=== PATIENT | female | born 1955 | race Caucasian/White ===

== ENCOUNTER 2021-09-17 17:32 | Inpatient (IN) ==
--- NOTE | 2021-09-17 17:57 | ED Triage Note ---
Date of Service September 17, 2021 History of Present Illness This patient was briefly evaluated while in triage. An abbreviated physical exam was performed. This patient is a 65-year-old Female that feels shaky, nauseated, cannot eat. Ongoing past week. Recently discontinued on buspirone and mirtazapine. Currently on lithium and paxil plus ativan at night. Physical Exam GENERAL: Well appearing HEART: RRR LUNGS: CTA Initial orders for labs and / or imaging were placed and patient was placed in the waiting area until a bed is available. Please see further documentation for the full ED course.
[2021-09-17 20:32] LABS: Albumin Globulin Ratio 1.6 (0.9-2); Albumin Level 4.6 gm/dl (3.4-5.0); BUN Creatinine Ratio 21.1 (10-20); Bilirubin,Total 0.5 mg/dl (0.2-1.0); Calcium 9.8 mg/dl (8.5-10.1); Creatinine Clr Calc Pharmacy 54.2 ml/min; Est GFR (African American) 103.6 ml/min; Est GFR (Non-African American) 89.4 ml/min; Globulin 2.9 gm/dl (2.5-4.0); Magnesium 2.3 mg/dl (1.7-2.4); Potassium 4.7 mmol/L (3.5-5.1); Total Protein 7.5 gm/dl (6.0-8.3)
[2021-09-17 20:55] LABS: Basophils # (auto) 0.01 K/uL (0-0.2); Basophils % (auto) 0.1 %; Eosinophils # (auto) 0.02 K/uL (0-0.5); Eosinophils % (auto) 0.2 %; Hematocrit (blood only) 41.2 % (37-47); Immature Granulocytes # (auto) 0.02 K/uL (0.00-0.02); Immature Granulocytes % (auto) 0.2 %; Lymphocytes # (auto) 2.09 K/uL (1.2-3.4); Lymphocytes % (auto) 19.4 %; Mean Corpuscular Hemoglobin 32.3 pg (25-34); Mean Corpuscular Volume 95.2 fL (80-100); Mean Platelet Volume 9.3 fL (7.4-10.4); Monocytes # (auto) 1.16 K/uL (0.11-0.59); Monocytes % (auto) 10.7 %; Neutrophils % (auto) 69.4 %; Platelet Count 431 K/uL (130-400); RDW Coefficient of Variation 12.1 % (11.5-14.5); Red Blood Count 4.33 M/uL (4.2-5.4)
[2021-09-17] MEDS ORDERED: ONDANSETRON INJ 2 MG/ML 2 ML VIAL IV STA (21:29)
[2021-09-17] MEDS ORDERED: SODIUM CHLORIDE 0.9% 1000ML 1,000 ML IV ONE (21:29)
[2021-09-17] MEDS ORDERED: LORazepam 2 MG/1 ML VIAL IV STA (21:29)
[2021-09-17 23:09] LABS: Appearance Urine Cloudy (Clear); Bacteria Urine Automated Negative (Negative); Bilirubin Urine Negative (Negative); Blood Urine Negative (Negative); Color Urine Yellow; Glucose Urine UA Negative (Negative); Ketones Urine 2+ (Negative); Leukocyte Esterase Urine Trace (Negative); Nitrite Urine Negative (Negative); Protein Urine Negative (Negative); RBC Urine Automated 0-4 /hpf (0-4); Specific Gravity Urine 1.012 (1.000-1.030); Urobilinogen Urine Negative (Negative)
[2021-09-17] MEDS ORDERED: MULTI-VITAMIN INFUSION 10 ML, THIAMINE HCL 100 MG, FOLIC ACID 1 MG in SODIUM CHLORIDE 0... IV ONE (23:47)
[2021-09-17] MEDS ORDERED: GABAPENTIN 800 MG TAB PO STA (23:47)
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
[2021-09-18] MEDS ORDERED: PROMETHAZINE HCL 6.25 MG in SODIUM CHLORIDE 0.9% 50 ML IV STA (00:06)
[2021-09-18] MEDS ORDERED: Ativan IV Alcohol Withdrawal--Active Protocol IV PRN (00:59)
[2021-09-18] MEDS ORDERED: ACETAMINOPHEN 325 MG TAB PO PRN (00:59)
[2021-09-18] MEDS ORDERED: LORazepam 2 MG in SYRINGE 1 ML IV PRN (00:59)
[2021-09-18] MEDS ORDERED: LORazepam 1 MG in SYRINGE 0.5 ML IV PRN (00:59)
[2021-09-18] MEDS ORDERED: traZODone HCL 100 MG TAB PO PRN (00:59)
[2021-09-18] MEDS ORDERED: GABAPENTIN 800MG ALCOHOL WITHDRAWAL LOAD PO STA (00:59)
[2021-09-18] MEDS ORDERED: LORazepam 3 MG in SYRINGE 1.5 ML IV PRN (00:59)
[2021-09-18] MEDS ORDERED: PROMETHAZINE HCL 6.25 MG in SODIUM CHLORIDE 0.9% 50 ML IV PRN (00:59)
--- NOTE | 2021-09-18 01:24 | Emergency Department Note ---
History of Present Illness General Chief complaint: Illness Stated complaint: SHAKING, NAUSEA Time Seen by Provider: 09/17/21 21:26 History of Present Illness This 65-year-old presents to the ER complaining of cannot sleep shaky tremulous since changing upper behavior health medicines Location: Generalized Quality: Weak and shaky Severity: Moderate Duration: Past 2 weeks Timing: Started 2 weeks ago Context: Symptoms got worse and patient came in Modifying factors: better with nothing; worse with activity patient states she has been unable to eat secondary to feeling shaky and tremulous. Patient states that just change up her behavioral health medicines. Patient denies chest pain, dyspnea, fevers, flulike illness. Home Medications Medication Instructions Recorded Confirmed Type lamotrigine 25 mg tablet 50 mg PO DAILY 07/13/20 09/17/21 History acetaminophen 500 mg tablet 1,000 mg PO Q6H PRN 11/15/20 09/17/21 History (Tylenol Extra Strength) fluoxetine 20 mg capsule 60 mg PO QAM 09/17/21 09/17/21 History gabapentin 100 mg capsule 100 mg PO HS 09/17/21 09/17/21 History lorazepam 1 mg tablet 1 mg PO BID 09/17/21 09/17/21 History trazodone 300 mg tablet 300 mg PO HS PRN 09/17/21 09/17/21 History Allergies Allergy/AdvReac Type Severity Reaction Status Date / Time Penicillins Allergy Intermediate Rash Verified 09/17/21 21:38 Sulfa (Sulfonamide Allergy Intermediate Vomiting Verified 09/17/21 21:38 Antibiotics) Past Med/Surg History Medical History History of kidney stones Surgical History No pertinent past surgical history Social History Smoking Status: Never smoker Preferred Language: Amharic Feels Safe at Home: Yes Review of Systems A total of 10 systems reviewed and were otherwise negative Physical Exam Vital Signs Vital Signs - 24 hr 09/17/21 17:55 09/17/21 21:04 09/17/21 23:00 Temperature 37.8 C H Temperature Source Temporal Artery Scan Pulse Rate 86 Respiratory Rate 18 Respiratory Effort / Characteristics Non-Labored Spontaneous Respiratory Depth Normal Blood Pressure 163/91 H Blood Pressure [Right Arm] 166/68 H 138/85 Blood Pressure Mean 115 Blood Pressure Mean [Right Arm] 100 102 Blood Pressure Position [Right Arm] Sitting Lying Pulse Oximetry 96 Oxygen Delivery Method Room Air Sepsis Recent Fever Within 48 Hours No Sepsis New/Unexplained Change in Mental Status No Sepsis Action Taken by Nursing No Action Required VITALS: Vitals are noted on the nurse's note and reviewed by myself. Vital signs stable. GENERAL: Pleasant tremulous female, in no acute distress, nondiaphoretic, well- developed well-nourished. SKIN: The skin was without rashes, erythema, edema, or bruising. There is no tenting of the skin. Capillary reflex less than 2 seconds. HEAD: Normocephalic atraumatic. EARS: External auditory canals clear, EYES: Pupils equal round and reactive to light and accommodation. Conjunctivae without injection, sclerae without icterus. Extraocular movements intact. NOSE: Patent, turbinates without inflammation or discharge. MOUTH: Mucous membranes moist. Pharynx without erythema or exudate. Uvula midline. Airway patent. Tongue does not deviate. NECK: Supple without nuchal rigidity. No lymphadenopathy. No thyromegaly. Cervical spine is nontender. No JVD. HEART: Regular rate and rhythm LUNGS: Clear to auscultation bilaterally without wheezes, rales or rhonchi. No retractions or accessory muscle use. ABDOMEN: Positive bowel sounds x 4. Normal tympanic percussion. Soft, nontender, without masses or organomegaly. Chance sign negative. No guarding or rebound tenderness. No CVA tenderness MUSCULOSKELETAL: No muscle atrophy, erythema, or edema noted. NEURO: Patient was alert and oriented to person place and time. Normal sensation to light and sharp touch. No hyperreflexia. No clonus. No focal neurological deficits. Course Administered Medications Multivitamins 10 ml/ Thiamine HCl 100 mg/ Folic Acid 1 mg/Sodium Chloride 1,011.2 mls @ 100 mls/hr IV .Q10H7M ONE Stop: 09/18/21 09:53 Last Admin: 09/18/21 00:36 Dose: 100 mls/hr Documented by: [id number] Discontinued Medications Gabapentin (Gabapentin 800 Mg Tab) 800 mg PO NOW STA Stop: 09/17/21 23:48 Last Admin: 09/18/21 00:36 Dose: 800 mg Documented by: [id number] Sodium Chloride (Nss 1000ml) 1,000 mls @ 999 mls/hr IV .Q1H1M ONE Stop: 09/17/21 22:29 Last Infusion: 09/17/21 22:49 Dose: 0 mls/hr Documented by: [id number] Admin: 09/17/21 21:43 Dose: 999 mls/hr Documented by: [id number] Promethazine HCl 6.25 mg/ (Sodium Chloride) 50.25 mls @ 201 mls/hr IV NOW STA Stop: 09/18/21 00:20 Last Admin: 09/18/21 00:36 Dose: 201 mls/hr Documented by: [id number] Lorazepam (Lorazepam 2 Mg/1 Ml Vial) 1 mg IV NOW STA; Protocol Stop: 09/17/21 21:30 Last Admin: 09/17/21 21:44 Dose: 1 mg Documented by: [id number] Ondansetron HCl (Ondansetron Inj 2 Mg/Ml 2 Ml Vial) 4 mg IV NOW STA Stop: 09/17/21 21:30 Last Admin: 09/17/21 21:43 Dose: 4 mg Documented by: [id number] Medical Decision Making Medical Records Attestation: I reviewed the patient's medical records. Home Medications Current Medication List: was personally reviewed by me Laboratory Data Attestation: I reviewed the patient's lab results. Result diagrams: 09/17/21 19:50 09/17/21 19:50 Lab Results 09/17/21 09/17/21 09/17/21 Range/Units 19:50 19:50 19:50 WBC 10.80 (4.8-10.8) K/uL RBC 4.33 (4.2-5.4) M/uL Hgb 14.0 (12.0-16.0) g/dL Hct 41.2 (37-47) % MCV 95.2 (80-100) fL MCH 32.3 (25-34) pg MCHC 34.0 (32-36) g/dL RDW Std Deviation 42.0 (36.4-46.3) fL RDW Coeff of Laila 12.1 (11.5-14.5) % Plt Count 431 H (130-400) K/uL MPV 9.3 (7.4-10.4) fL Immature Gran % (Auto) 0.2 % Neut % (Auto) 69.4 % Lymph % (Auto) 19.4 % Dickson % (Auto) 10.7 % Eos % (Auto) 0.2 % Baso % (Auto) 0.1 % Neut # (Auto) 7.50 H (1.4-6.5) K/uL Lymph # (Auto) 2.09 (1.2-3.4) K/uL Dickson # (Auto) 1.16 H (0.11-0.59) K/uL Eos # (Auto) 0.02 (0-0.5) K/uL Baso # (Auto) 0.01 (0-0.2) K/uL Immature Gran # (Auto) 0.02 (0.00-0.02) K/uL Sodium 138 (136-145) mmol/L Potassium 4.7 (3.5-5.1) mmol/L Chloride 101 (98-107) mmol/L Carbon Dioxide 30 (21-32) mmol/L Anion Gap 7 (3-11) BUN 15 (6-23) mg/dl Creatinine 0.71 (0.6-1.2) mg/dl Est Cr Clr Drug Dosing 54.2 ml/min Est GFR ( Amer) 103.6 ml/min Est GFR (Non-Af Amer) 89.4 ml/min BUN/Creatinine Ratio 21.1 H (10-20) Glucose 109 H (70-99(Fasting)) mg/dl Lactate (0.4-2.0) mmol/L Calcium 9.8 (8.5-10.1) mg/dl Magnesium 2.3 (1.7-2.4) mg/dl Total Bilirubin 0.5 (0.2-1.0) mg/dl AST 15 (13-39) U/L ALT 9 (7-52) U/L Alkaline Phosphatase 70 (34-104) U/L Total Creatine Kinase (26-192) U/L Total Protein 7.5 (6.0-8.3) gm/dl Albumin 4.6 (3.4-5.0) gm/dl Globulin 2.9 (2.5-4.0) gm/dl Albumin/Globulin Ratio 1.6 (0.9-2) Lipase 24 (11-82) U/L Procalcitonin (0-0.5) ng/ml TSH 1.592 (0.300-4.500) uIu/ml Urine Color Urine Appearance (Clear) Urine pH (4.5-7.5) Ur Specific [place] (1.000-1.030) Urine Protein (Negative) Urine Glucose (UA) (Negative) Urine Ketones (Negative) Urine Blood (Negative) Urine Nitrite (Negative) Urine Bilirubin (Negative) Urine Urobilinogen (Negative) Ur Leukocyte Esterase (Negative) Urine WBC (Auto) (0-5) /hpf Urine RBC (Auto) (0-4) /hpf U Hyaline Cast (Auto) (0-5) /lpf U Epithel Cells (Auto) (0-5) /lpf Urine Bacteria (Auto) (Negative) [place] (0.6-1.2) mmol/L Ethyl Alcohol mg/dL (<10.0) mg/dl SARS-CoV-2, RNA, NAAT (NEGATIVE) 09/17/21 09/17/21 09/17/21 Range/Units 19:50 19:50 19:50 WBC (4.8-10.8) K/uL RBC (4.2-5.4) M/uL Hgb (12.0-16.0) g/dL Hct (37-47) % MCV (80-100) fL MCH (25-34) pg MCHC (32-36) g/dL RDW Std Deviation (36.4-46.3) fL RDW Coeff of Laila (11.5-14.5) % Plt Count (130-400) K/uL MPV (7.4-10.4) fL Immature Gran % (Auto) % Neut % (Auto) % Lymph % (Auto) % Dickson % (Auto) % Eos % (Auto) % Baso % (Auto) % Neut # (Auto) (1.4-6.5) K/uL Lymph # (Auto) (1.2-3.4) K/uL Dickson # (Auto) (0.11-0.59) K/uL Eos # (Auto) (0-0.5) K/uL Baso # (Auto) (0-0.2) K/uL Immature Gran # (Auto) (0.00-0.02) K/uL Sodium (136-145) mmol/L Potassium (3.5-5.1) mmol/L Chloride (98-107) mmol/L Carbon Dioxide (21-32) mmol/L Anion Gap (3-11) BUN (6-23) mg/dl Creatinine (0.6-1.2) mg/dl Est Cr Clr Drug Dosing ml/min Est GFR ( Amer) ml/min Est GFR (Non-Af Amer) ml/min BUN/Creatinine Ratio (10-20) Glucose (70-99(Fasting)) mg/dl Lactate (0.4-2.0) mmol/L Calcium (8.5-10.1) mg/dl Magnesium (1.7-2.4) mg/dl Total Bilirubin (0.2-1.0) mg/dl AST (13-39) U/L ALT (7-52) U/L Alkaline Phosphatase (34-104) U/L Total Creatine Kinase 59 (26-192) U/L Total Protein (6.0-8.3) gm/dl Albumin (3.4-5.0) gm/dl Globulin (2.5-4.0) gm/dl Albumin/Globulin Ratio (0.9-2) Lipase (11-82) U/L Procalcitonin (0-0.5) ng/ml TSH (0.300-4.500) uIu/ml Urine Color Urine Appearance (Clear) Urine pH (4.5-7.5) Ur Specific [place] (1.000-1.030) Urine Protein (Negative) Urine Glucose (UA) (Negative) Urine Ketones (Negative) Urine Blood (Negative) Urine Nitrite (Negative) Urine Bilirubin (Negative) Urine Urobilinogen (Negative) Ur Leukocyte Esterase (Negative) Urine WBC (Auto) (0-5) /hpf Urine RBC (Auto) (0-4) /hpf U Hyaline Cast (Auto) (0-5) /lpf U Epithel Cells (Auto) (0-5) /lpf Urine Bacteria (Auto) (Negative) [place] < 0.1 L (0.6-1.2) mmol/L Ethyl Alcohol mg/dL (<10.0) mg/dl SARS-CoV-2, RNA, NAAT NEGATIVE (NEGATIVE) 09/17/21 09/17/21 09/17/21 Range/Units 19:50 22:52 22:55 WBC (4.8-10.8) K/uL RBC (4.2-5.4) M/uL Hgb (12.0-16.0) g/dL Hct (37-47) % MCV (80-100) fL MCH (25-34) pg MCHC (32-36) g/dL RDW Std Deviation (36.4-46.3) fL RDW Coeff of Laila (11.5-14.5) % Plt Count (130-400) K/uL MPV (7.4-10.4) fL Immature Gran % (Auto) % Neut % (Auto) % Lymph % (Auto) % Dickson % (Auto) % Eos % (Auto) % Baso % (Auto) % Neut # (Auto) (1.4-6.5) K/uL Lymph # (Auto) (1.2-3.4) K/uL Dickson # (Auto) (0.11-0.59) K/uL Eos # (Auto) (0-0.5) K/uL Baso # (Auto) (0-0.2) K/uL Immature Gran # (Auto) (0.00-0.02) K/uL Sodium (136-145) mmol/L Potassium (3.5-5.1) mmol/L Chloride (98-107) mmol/L Carbon Dioxide (21-32) mmol/L Anion Gap (3-11) BUN (6-23) mg/dl Creatinine (0.6-1.2) mg/dl Est Cr Clr Drug Dosing ml/min Est GFR ( Amer) ml/min Est GFR (Non-Af Amer) ml/min BUN/Creatinine Ratio (10-20) Glucose (70-99(Fasting)) mg/dl Lactate 0.9 (0.4-2.0) mmol/L Calcium (8.5-10.1) mg/dl Magnesium (1.7-2.4) mg/dl Total Bilirubin (0.2-1.0) mg/dl AST (13-39) U/L ALT (7-52) U/L Alkaline Phosphatase (34-104) U/L Total Creatine Kinase (26-192) U/L Total Protein (6.0-8.3) gm/dl Albumin (3.4-5.0) gm/dl Globulin (2.5-4.0) gm/dl Albumin/Globulin Ratio (0.9-2) Lipase (11-82) U/L Procalcitonin < 0.05 (0-0.5) ng/ml TSH (0.300-4.500) uIu/ml Urine Color Yellow Urine Appearance Cloudy A (Clear) Urine pH 8.0 H (4.5-7.5) Ur Specific [place] 1.012 (1.000-1.030) Urine Protein Negative (Negative) Urine Glucose (UA) Negative (Negative) Urine Ketones 2+ H (Negative) Urine Blood Negative (Negative) Urine Nitrite Negative (Negative) Urine Bilirubin Negative (Negative) Urine Urobilinogen Negative (Negative) Ur Leukocyte Esterase Trace H (Negative) Urine WBC (Auto) 1-5 (0-5) /hpf Urine RBC (Auto) 0-4 (0-4) /hpf U Hyaline Cast (Auto) 1-5 (0-5) /lpf U Epithel Cells (Auto) 5-10 H (0-5) /lpf Urine Bacteria (Auto) Negative (Negative) [place] (0.6-1.2) mmol/L Ethyl Alcohol mg/dL (<10.0) mg/dl SARS-CoV-2, RNA, NAAT (NEGATIVE) 09/17/21 Range/Units 23:10 WBC (4.8-10.8) K/uL RBC (4.2-5.4) M/uL Hgb (12.0-16.0) g/dL Hct (37-47) % MCV (80-100) fL MCH (25-34) pg MCHC (32-36) g/dL RDW Std Deviation (36.4-46.3) fL RDW Coeff of Laila (11.5-14.5) % Plt Count (130-400) K/uL MPV (7.4-10.4) fL Immature Gran % (Auto) % Neut % (Auto) % Lymph % (Auto) % Dickson % (Auto) % Eos % (Auto) % Baso % (Auto) % Neut # (Auto) (1.4-6.5) K/uL Lymph # (Auto) (1.2-3.4) K/uL Dickson # (Auto) (0.11-0.59) K/uL Eos # (Auto) (0-0.5) K/uL Baso # (Auto) (0-0.2) K/uL Immature Gran # (Auto) (0.00-0.02) K/uL Sodium (136-145) mmol/L Potassium (3.5-5.1) mmol/L Chloride (98-107) mmol/L Carbon Dioxide (21-32) mmol/L Anion Gap (3-11) BUN (6-23) mg/dl Creatinine (0.6-1.2) mg/dl Est Cr Clr Drug Dosing ml/min Est GFR ( Amer) ml/min Est GFR (Non-Af Amer) ml/min BUN/Creatinine Ratio (10-20) Glucose (70-99(Fasting)) mg/dl Lactate (0.4-2.0) mmol/L Calcium (8.5-10.1) mg/dl Magnesium (1.7-2.4) mg/dl Total Bilirubin (0.2-1.0) mg/dl AST (13-39) U/L ALT (7-52) U/L Alkaline Phosphatase (34-104) U/L Total Creatine Kinase (26-192) U/L Total Protein (6.0-8.3) gm/dl Albumin (3.4-5.0) gm/dl Globulin (2.5-4.0) gm/dl Albumin/Globulin Ratio (0.9-2) Lipase (11-82) U/L Procalcitonin (0-0.5) ng/ml TSH (0.300-4.500) uIu/ml Urine Color Urine Appearance (Clear) Urine pH (4.5-7.5) Ur Specific [place] (1.000-1.030) Urine Protein (Negative) Urine Glucose (UA) (Negative) Urine Ketones (Negative) Urine Blood (Negative) Urine Nitrite (Negative) Urine Bilirubin (Negative) Urine Urobilinogen (Negative) Ur Leukocyte Esterase (Negative) Urine WBC (Auto) (0-5) /hpf Urine RBC (Auto) (0-4) /hpf U Hyaline Cast (Auto) (0-5) /lpf U Epithel Cells (Auto) (0-5) /lpf Urine Bacteria (Auto) (Negative) [place] (0.6-1.2) mmol/L Ethyl Alcohol mg/dL < 10.0 (<10.0) mg/dl SARS-CoV-2, RNA, NAAT (NEGATIVE) Imaging Data Attestation: I personally reviewed and interpreted this imaging study as follows: MDM Narrative Prior records/ancillary studies reviewed and summarized above. Nursing notes reviewed. Additional history obtained from family. The patient's history was concerning for shakiness with changes in recent behavioral health meds Differential diagnosis: Etiologies such as serotonin syndrome, metabolic, infection, hypo/hyperglycemia, electrolyte abnormalities, cardiac sources, intracerebral event, toxicologic, neurologic, as well as others were entertained. Physical examination: As above. ER treatment provided: IV Lock An order was placed for continuous cardiac monitoring. The monitor shows a rate of 60-100 with a sinus rhythm. Ativan, Zofran On reassessment the patient felt better. Diagnostics interpretation by me: ECG: Ordered for weakness EKG: Poor baseline, normal sinus, normal intervals, no acute ST-T wave changes. Impression normal sinus rhythm with a poor baseline interpreted by myself I think arrhythmia is unlikely. EKG shows normal sinus rhythm with no interval abnormalities such as QT prolongation or WPW. There are no findings to suggest Brugada syndrome. Cardiac monitoring in the emergency department reveals no tachycardic or bradycardic dysrhythmia. Hypertrophic cardiomyopathy was considered but there are no clear historical elements pointing toward this. EKG is not suggestive. The QRS voltage is not extremely large and there are no suggestive Q waves. The labs revealed no worrisome leukocytosis, euthyroid Imaging studies: Chest x-ray with no acute consolidation, pneumothorax or free air per my interpretation Consultation: A consultation was placed with the hospitalist. The case was discussed and diagnostics were reviewed. The patient was evaluated in the ER for further treatment. Exam and history seem consistent with shakiness could be related to serotonin levels. Medicine is consulted. She will be admitted. No clonus. No hyperreflexia. She is afebrile. By the evaluation outlined above emergent etiologies such as infection, electrolyte abnormalities, cardiac sources, intracerebral event, toxologic, abnormalities blood glucose, metabolic, as well as others were deemed relatively unlikely. The pt informed about the findings as listed above. All questions were answered and pleased with the treatment. The chart was completed utilizing [employer] Speech voice recognition software. Grammatical errors, random word insertions, pronoun errors, and incomplete sentences are an occassional consequence of this system due to software limitations, ambient noise, and hardware issues. Any formal questions or concerns about the content, text, or information contained within the body of this dictation should be directly addressed to the physician payroll human resources assistant for clarification. Impression & Plan Shakiness, Acute dehydration Discharge Plan Visit Data Chief Complaint: Illness Stated Complaint: SHAKING, NAUSEA ED Provider: Robbie Hartman ED Midlevel Provider: Linda Mahan Discharge Problem: Shakiness, Acute dehydration Patient Disposition: Admitted As Inpatient Condition: Good
[2021-09-18] MEDS: THIAMINE HCL 100 MG TAB PO SCH ×2 (02:12→08:08)
[2021-09-18] MEDS: FOLIC ACID 1 MG TAB PO SCH ×2 (02:12→08:08)
[2021-09-18] MEDS: GABAPENTIN 400 MG CAP PO SCH ×2 (06:14→13:08)
[2021-09-18] MEDS: HEPARIN SOD 5,000 UNIT/0.5 ML VIAL SQ SCH ×2 (06:14→13:34)
[2021-09-18 06:48] LABS: Basophils # (auto) 0.02 K/uL (0-0.2); Basophils % (auto) 0.2 %; Eosinophils # (auto) 0.07 K/uL (0-0.5); Eosinophils % (auto) 0.8 %; Hematocrit (blood only) 38.2 % (37-47); Hemoglobin 12.8 g/dL (12.0-16.0); Immature Granulocytes # (auto) 0.01 K/uL (0.00-0.02); Immature Granulocytes % (auto) 0.1 %; Lymphocytes # (auto) 2.09 K/uL (1.2-3.4); Lymphocytes % (auto) 24.1 %; Mean Corpuscular Hemoglobin 31.8 pg (25-34); Mean Corpuscular Hgb Conc 33.5 g/dL (32-36); Mean Platelet Volume 9.1 fL (7.4-10.4); Monocytes % (auto) 10.4 %; Neutrophils # (auto) 5.58 K/uL (1.4-6.5); Neutrophils % (auto) 64.4 %; Platelet Count 354 K/uL (130-400); RDW Coefficient of Variation 12.2 % (11.5-14.5); RDW Standard Deviation 42.1 fL (36.4-46.3); Red Blood Count 4.02 M/uL (4.2-5.4); White Blood Count 8.67 K/uL (4.8-10.8)
--- NOTE | 2021-09-18 07:03 | XRay Report ---
XR chest 1V portable HISTORY: 65 years-old Female fever acute fever COMPARISON: Chest radiograph 08/04/2018 TECHNIQUE: Portable AP view of the chest FINDINGS: The cardiomediastinal and hilar silhouettes are within normal limits. There is no pneumothorax, pleur al effusion, airspace consolidation or overt pulmonary edema. The bones of the chest appear grossly i ntact. Postoperative changes of the right proximal humerus. Degenerative changes of the shoulders and spine. IMPRESSION: No acute process. ACT 112: Negative or not required by law. The above report was generated using voice recognition software. It may contain grammatical, syntax o r spelling errors. Electronically signed by: Jesús Kevin M.D. 09/18/2021 7:02 AM
[2021-09-18 07:30] LABS: Albumin Globulin Ratio 1.7 (0.9-2); Albumin Level 3.8 gm/dl (3.4-5.0); BUN Creatinine Ratio 15.5 (10-20); Bilirubin,Total 0.6 mg/dl (0.2-1.0); Calcium 8.4 mg/dl (8.5-10.1); Creatinine Clr Calc Pharmacy 55.1 ml/min; Est GFR (African American) 103.6 ml/min; Est GFR (Non-African American) 89.4 ml/min; Globulin 2.3 gm/dl (2.5-4.0); Potassium 3.6 mmol/L (3.5-5.1); Total Protein 6.1 gm/dl (6.0-8.3)
--- NOTE | 2021-09-18 08:05 | Hospitalist Progress Note ---
Date of Service September 18, 2021 Assessment & Plan Plan: 65 year old female with treatment refractory depression, complicated medication regimen, low suspicion for ETOH abuse who presented to the ED 09/17 with shakiness and nausea. Her OP meds were recently adjusted by pyschiatry 2 weeks back (paxil dose increased, remeron added) following which she did not feel well after which they were further adjusted (remeron, buspar stopped). Drinks 1 glass of wine daily Shakiness- likely medication S/E, polypharmacy, doubt alcohol withdrawal (drinks 1 glass of wine daily, no hard liquor, denies any alcohol issues and denies withdrawal)- improving after medication adjustment. Seen by psych- recommendations noted. She refused neurontin. Major depression- per psych, discontinue prozac, consider lamictal discontinuation if patient agrees. She self discontinued abilify. She has appointment with Dr Fuentes tomorrow. Admission and Anticipated Discharge Date Admission Date: September 17, 2021 Results & Data Results & Data ([facility] [place]) Vital Signs (Past 12 Hours) Vital Signs Temp Pulse Resp BP Pulse Ox 09/18/21 03:00 36.8 C 66 16 141/68 H 98 09/18/21 01:11 36.8 C 74 16 156/59 H 100 09/17/21 23:00 138/85 09/17/21 21:04 166/68 H
[2021-09-18] MEDS ORDERED: FLUoxetine HCL 20 MG CAP PO SCH (09:00)
[2021-09-18] MEDS ORDERED: lamoTRIgine 25 MG TAB PO SCH ×2 (09:00→21:00)
[2021-09-18] MEDS ORDERED: LORazepam 1 MG TAB PO SCH (09:00)
[2021-09-18] MEDS ORDERED: MULTIVITAMIN TAB PO SCH (09:00)
[2021-09-18] MEDS ORDERED: Nursing to Pharmacy Communication SCH (10:45)
--- NOTE | 2021-09-18 12:44 | Psychiatric Consultation ---
Date of Consultation September 18, 2021 Impression / Recommendations Impression 65 yo female with treatment refractory depression, complicated medication regimen, low suspicion for ETOH abuse was admit for IVF and tremor has essentially resolved. Prozac was held this am. (1) Major depression: case discussed with Dr. Mueller. Prozac does not need to be tapered as long half life and likely cause of jitteriness/N, can f/u with outpatient psychiatrist re: options. Lamictal also doesn't need to be tapered as not for seizure and already d/c per outpatient office but she would prefer to continue 50 mg tonight and then to 25 mg hs tomorrow. she is refusing Neurontin, reviewed it's utility in tremor should recur Ativan BID prn per outpatient psychiatrist and she is aware not to combine with ETOH. Dr. Fuentes notified that patient self-discontinued Abilify 5 mg. outpatient appt with Dr. Fuentes tomorrow may need rescheduled if remains hospitalized in am. Psych History Identifying Data 65 yo female from [facility], outpatient of Dr. Fuentes admit overnight for tremor/dehydration, rule out medication reaction or ETOH withdrawal. Consultation is by hospitalist service for co-management. Chief Complaint "It's just been all downhill for the past 2 weeks". History of Present Illness Patient states that she felt tremulous and N with the addition of Remeron 2 weeks ago and notified the office and was directed to discontinue it, Buspar, and Lamictal taper. Her symptoms only got worse and exacerbated her longstanding resistance to eating related to remote hx of anorexia nervosa. She states overall she has been feeling more anxious and depressed since spring. She did lose an uncle last week who had been ill for some time. She maintains that she drinks one drink a day and that she hasn't changed her use of prn Ativan. Per outpatient psychiatrist office/discussion with Dr. Smith she was transferred to his care for a trial of TMS prior to the pandemic following long term of [facility] [place] but a motor threshhold could not be establish ed. She had responded to Buspar augmentation and Viibryd but stopped working. She was only restarted on Prozac (which she keeps referring to as Paxil) last month with dose titration and now worsening tremor and N. Medication list per Ricky: Neurontin 100 mg po qhs, Abilify 5 mg daily (Patient states she has not been taking for some time, doesn't know either), Prozac 60 mg daily (note was scheduled to receive 40 mg from hospitalist service this am but I held dose until seen). Ativan 1 mg BID prn, Deplin, Lamictal "should already be tapered". Both the patient and her psychiatrist's office state that she hasn't been taking trazodone 300 mg for some time. She doesn't feel Neurontin is as helpful for sleep and apparently has been refusing Neurontin loading here per Dr. Mueller (which she indicated she had taken). She picked at her lunch but notes tremor is essentially resolved. Past Psychiatric History Previous Psych History: no formal dx of cognitive do, no suicidal ideation/attempts under Dr. Fuentes's care. Allergies Allergy/AdvReac Type Severity Reaction Status Date / Time Penicillins Allergy Intermediate Rash Verified 09/17/21 21:38 Sulfa (Sulfonamide Allergy Intermediate Vomiting Verified 09/17/21 21:38 Antibiotics) Home Medications Medication Instructions Recorded Confirmed Type lamotrigine 25 mg tablet 50 mg PO DAILY 07/13/20 09/17/21 History acetaminophen 500 mg tablet 1,000 mg PO Q6H PRN 11/15/20 09/17/21 History (Tylenol Extra Strength) fluoxetine 20 mg capsule 60 mg PO QAM 09/17/21 09/17/21 History gabapentin 100 mg capsule 100 mg PO HS 09/17/21 09/17/21 History lorazepam 1 mg tablet 1 mg PO BID 09/17/21 09/17/21 History trazodone 300 mg tablet 300 mg PO HS PRN 09/17/21 09/17/21 History Personal History Highest Grade Completed: High School Graduate Beliefs That Will Affect Care: None Patient History Medical History History of kidney stones Surgical History No pertinent past surgical history Social History Smoking Status: Never smoker Second Hand Exposure: No; Do You Dip or Chew Tobacco: No; Tobacco Cessation Education Requested by Patient: No Hx Alcohol Use: Yes Alcohol type: wine Hx Substance Use: No Preferred Language: Uzbek Communication Ability: Effective Rural Sociologist Required: No Beliefs That Will Affect Care: None Current Living Situation: Spouse Other Information That Helps Us Care for You: No Feels Safe at Home: Yes Safety Concerns: Feels Safe At This Time Assistive Devices: None Physical Exam Psychiatric: Orientation: alert and oriented x 3 Apperance: appropriately dressed and appropriately groomed Eye Contact: good eye contact Motor Behavior: no abnormal motor movements Speech: normal rate/rhythm/volume of speech Affect: + depressed affect Mood: + depressed mood Thought Process: goal directed thought process Thought Content: reality based without delusions Suicidal Thoughts: denies suicidal thoughts Homicidal Thoughts: denies homicidal thoughts Hallucinations: no auditory hallucinations and no visual hallucinations Cognition: attention grossly intact and language grossly intact Estimated Intelligence: consistent with education level Vital Signs (Past 24 Hours): Last Vital Signs Temp 36.9 C 09/18/21 12:01 Pulse 75 09/18/21 12:01 Resp 18 09/18/21 12:01 BP 123/62 09/18/21 12:01 Pulse Ox 97 09/18/21 12:01 Review of Systems All systems reviewed & are unremarkable except as noted in HPI & below Results & Data (PSY) Laboratory Results Microbiology 09/17/21 22:52 Blood Aerobic Blood Culture - Pending 09/17/21 22:52 Blood Anaerobic Blood Culture - Pending 09/17/21 22:52 Blood Aerobic Blood Culture - Pending 09/17/21 22:52 Blood Anaerobic Blood Culture - Pending Labs 09/17/21 09/17/21 09/17/21 19:50 19:50 19:50 WBC 10.80 RBC 4.33 Hgb 14.0 Hct 41.2 MCV 95.2 MCH 32.3 MCHC 34.0 RDW Std Deviation 42.0 RDW Coeff of Laila 12.1 Plt Count 431 H MPV 9.3 Immature Gran % (Auto) 0.2 Neut % (Auto) 69.4 Lymph % (Auto) 19.4 [place] % (Auto) 10.7 Eos % (Auto) 0.2 Baso % (Auto) 0.1 Neut # (Auto) 7.50 H Lymph # (Auto) 2.09 [place] # (Auto) 1.16 H Eos # (Auto) 0.02 Baso # (Auto) 0.01 Immature Gran # (Auto) 0.02 Sodium 138 Potassium 4.7 Chloride 101 Carbon Dioxide 30 Anion Gap 7 BUN 15 Creatinine 0.71 Est Cr Clr Drug Dosing 54.2 Est GFR ( Amer) 103.6 Est GFR (Non-Af Amer) 89.4 BUN/Creatinine Ratio 21.1 H Glucose 109 H Lactate Calcium 9.8 Magnesium 2.3 Total Bilirubin 0.5 AST 15 ALT 9 Alkaline Phosphatase 70 Total Creatine Kinase Total Protein 7.5 Albumin 4.6 Globulin 2.9 Albumin/Globulin Ratio 1.6 Lipase 24 Procalcitonin TSH 1.592 Urine Color Urine Appearance Urine pH Ur Specific [place] Urine Protein Urine Glucose (UA) Urine Ketones Urine Blood Urine Nitrite Urine Bilirubin Urine Urobilinogen Ur Leukocyte Esterase Urine WBC (Auto) Urine RBC (Auto) U Hyaline Cast (Auto) U Epithel Cells (Auto) Urine Bacteria (Auto) [place] Ethyl Alcohol mg/dL SARS-CoV-2, RNA, NAAT 09/17/21 09/17/21 09/17/21 19:50 19:50 19:50 WBC RBC Hgb Hct MCV MCH MCHC RDW Std Deviation RDW Coeff of Laila Plt Count MPV Immature Gran % (Auto) Neut % (Auto) Lymph % (Auto) [place] % (Auto) Eos % (Auto) Baso % (Auto) Neut # (Auto) Lymph # (Auto) [place] # (Auto) Eos # (Auto) Baso # (Auto) Immature Gran # (Auto) Sodium Potassium Chloride Carbon Dioxide Anion Gap BUN Creatinine Est Cr Clr Drug Dosing Est GFR ( Amer) Est GFR (Non-Af Amer) BUN/Creatinine Ratio Glucose Lactate Calcium Magnesium Total Bilirubin AST ALT Alkaline Phosphatase Total Creatine Kinase 59 Total Protein Albumin Globulin Albumin/Globulin Ratio Lipase Procalcitonin TSH Urine Color Urine Appearance Urine pH Ur Specific [place] Urine Protein Urine Glucose (UA) Urine Ketones Urine Blood Urine Nitrite Urine Bilirubin Urine Urobilinogen Ur Leukocyte Esterase Urine WBC (Auto) Urine RBC (Auto) U Hyaline Cast (Auto) U Epithel Cells (Auto) Urine Bacteria (Auto) [place] < 0.1 L Ethyl Alcohol mg/dL SARS-CoV-2, RNA, NAAT NEGATIVE 09/17/21 09/17/21 09/17/21 19:50 22:52 22:55 WBC RBC Hgb Hct MCV MCH MCHC RDW Std Deviation RDW Coeff of Laila Plt Count MPV Immature Gran % (Auto) Neut % (Auto) Lymph % (Auto) [place] % (Auto) Eos % (Auto) Baso % (Auto) Neut # (Auto) Lymph # (Auto) [place] # (Auto) Eos # (Auto) Baso # (Auto) Immature Gran # (Auto) Sodium Potassium Chloride Carbon Dioxide Anion Gap BUN Creatinine Est Cr Clr Drug Dosing Est GFR ( Amer) Est GFR (Non-Af Amer) BUN/Creatinine Ratio Glucose Lactate 0.9 Calcium Magnesium Total Bilirubin AST ALT Alkaline Phosphatase Total Creatine Kinase Total Protein Albumin Globulin Albumin/Globulin Ratio Lipase Procalcitonin < 0.05 TSH Urine Color Yellow Urine Appearance Cloudy A Urine pH 8.0 H Ur Specific [place] 1.012 Urine Protein Negative Urine Glucose (UA) Negative Urine Ketones 2+ H Urine Blood Negative Urine Nitrite Negative Urine Bilirubin Negative Urine Urobilinogen Negative Ur Leukocyte Esterase Trace H Urine WBC (Auto) 1-5 Urine RBC (Auto) 0-4 U Hyaline Cast (Auto) 1-5 U Epithel Cells (Auto) 5-10 H Urine Bacteria (Auto) Negative [place] Ethyl Alcohol mg/dL SARS-CoV-2, RNA, NAAT 09/17/21 09/18/21 09/18/21 23:10 06:23 06:23 WBC 8.67 RBC 4.02 L Hgb 12.8 Hct 38.2 MCV 95.0 MCH 31.8 MCHC 33.5 RDW Std Deviation 42.1 RDW Coeff of Laila 12.2 Plt Count 354 MPV 9.1 Immature Gran % (Auto) 0.1 Neut % (Auto) 64.4 Lymph % (Auto) 24.1 [place] % (Auto) 10.4 Eos % (Auto) 0.8 Baso % (Auto) 0.2 Neut # (Auto) 5.58 Lymph # (Auto) 2.09 [place] # (Auto) 0.90 H Eos # (Auto) 0.07 Baso # (Auto) 0.02 Immature Gran # (Auto) 0.01 Sodium 138 Potassium 3.6 D Chloride 105 Carbon Dioxide 28 Anion Gap 5 BUN 11 Creatinine 0.71 Est Cr Clr Drug Dosing 55.1 Est GFR ( Amer) 103.6 Est GFR (Non-Af Amer) 89.4 BUN/Creatinine Ratio 15.5 Glucose 102 H Lactate Calcium 8.4 L Magnesium Total Bilirubin 0.6 AST 13 ALT 8 Alkaline Phosphatase 57 Total Creatine Kinase Total Protein 6.1 Albumin 3.8 Globulin 2.3 L Albumin/Globulin Ratio 1.7 Lipase Procalcitonin TSH Urine Color Urine Appearance Urine pH Ur Specific [place] Urine Protein Urine Glucose (UA) Urine Ketones Urine Blood Urine Nitrite Urine Bilirubin Urine Urobilinogen Ur Leukocyte Esterase Urine WBC (Auto) Urine RBC (Auto) U Hyaline Cast (Auto) U Epithel Cells (Auto) Urine Bacteria (Auto) [place] Ethyl Alcohol mg/dL < 10.0 SARS-CoV-2, RNA, NAAT Medications Administered Folic [facility] 1 Mg Tab) [facility] Stop: 10/18/21 00:58 Last Admin: 09/18/21 08:08 Dose: Not Given Documented by: [id number] Admin: 09/18/21 02:12 Dose: Not Given Documented by: [id number] Heparin Sodium (Porcine) (Heparin Sod 5,000 Unit/0.5 Ml Vial) 5,000 units SQ Q8 [facility] Stop: 10/18/21 05:59 Last Admin: 09/18/21 06:14 Dose: Not Given Documented by: [id number] Promethazine HCl 6.25 mg/ (Sodium Chloride) 50.25 mls @ 201 mls/hr IV Q6H PRN PRN Reason: Nausea And Vomiting Stop: 10/18/21 00:58 Last Infusion: 09/18/21 08:55 Dose: 0 mls/hr Documented by: [id number] Admin: 09/18/21 07:47 Dose: 201 mls/hr Documented by: [id number] Lorazepam (Lorazepam 1 Mg Tab) 1 mg PO BID [facility] Stop: 10/18/21 08:59 Last Admin: 09/18/21 09:05 Dose: 1 mg Documented by: [id number] Multivitamins ([facility]ivitamin Tab) [facility] Stop: 10/18/21 08:59 Last Admin: 09/18/21 10:42 Dose: Not Given Documented by: [id number] Thiamine HCl (Thiamine Hcl 100 Mg Tab) 100 mg PO QAM [facility] Stop: 10/18/21 00:58 Last Admin: 09/18/21 08:08 Dose: Not Given Documented by: [id number] Admin: 09/18/21 02:12 Dose: Not Given Documented by: [id number] Coding Level of Care Code 80306 [facility] Intl Hosp Care Lvl 2 Diagnoses Major depression F32.9
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
[2021-09-18] MEDS ORDERED: GABAPENTIN 400 MG CAP PO SCH (22:00)
--- NOTE | 2021-09-18 22:20 | Electrocardiogram Report ---
Test Reason : Blood Pressure : / mmHG Vent. Rate : 073 BPM Atrial Rate : 073 BPM P-R Int : 156 ms QRS Dur : 076 ms QT Int : 416 ms P-R-T Axes : 075 068 073 degrees QTc Int : 458 ms Poor data quality, interpretation may be adversely affected Normal sinus rhythm Septal infarct (cited on or before 13-JUL-2020) Abnormal ECG When compared with ECG of 13-JUL-2020 19:07, No significant change was found Confirmed by Mahamed Sam ([id number]) on 09/18/2021 10:19:34 PM Referred By: REFERRED SELF Confirmed By:Mahamed Sam
[2021-09-20] MEDS ORDERED: GABAPENTIN 400 MG CAP PO SCH
[2021-09-21] MEDS ORDERED: GABAPENTIN 400 MG CAP PO SCH (12:00)
--- NOTE | 2021-10-14 08:35 | Coding Query ---
MALNUTRITION To promote full compliance with coding requirements relating to patient care, physician participation is requested in all cases of tapper bit uncertainty. Please assist us with the question(s) below: Please place an X within the parenthesis (x). If other, please document: "Malnutrition" is documented in this record on the H&P. If possible, please check the box that provides a more specific diagnosis: ( ) Mild malnutrition ( ) Moderate malnutrition ( x) Severe malnutrition ( ) Protein malnutrition (kwashiorkor) ( ) Severe protein calorie malnutrition ( ) Protein calorie malnutrition, unspecified ( ) Other (please specify): Thank you Marybeth JOSÉ
== END 2021-09-18 16:28 | disposition home or self-care (01) | DRG 91 ==
LOC: ED 17:32 → 2E 23:56

== ENCOUNTER 2022-10-24 11:27 | Observation (INO) ==
[2022-10-24] MEDS ORDERED: MECLIZINE HCL 25 MG TAB PO STA (12:07)
[2022-10-24] MEDS ORDERED: LORazepam 2 MG/1 ML VIAL IV STA (12:07)
--- NOTE | 2022-10-24 12:07 | Emergency Department Note ---
Impression & Plan Dizziness, Nausea ED Provider Note NAME: ZIYAD DORADO AGE: 66 SEX: F : 1955 ARRIVES VIA: Walk-In INFORMANT: Patient ED PROVIDER(S): Diego Stevens DO CHIEF COMPLAINT: dizzy HPI: Patient is a 66-year-old female who presents to the ER for dizziness. She notes that the symptoms started on Thursday and have been getting significantly worse. She notes it does not change with positions. Is worse with movement of her eyes. Denies any headache or change in vision. No chest pain or shortness of breath. Admits to nausea but no vomiting. She has been unable to eat or drink. No weakness or numbness in the arms or legs. No other exacerbating or remitting factors. PAST MEDICAL HISTORY:See Below PAST SURGICAL HISTORY:See Below FAMILY HISTORY:See Below SOCIAL HISTORY:See Below HOME MEDICATIONS:See Below ALLERGIES:See Below VITALS:See Below PHYSICAL EXAMINATION: GENERAL: Sitting up in bed, alert, well appearing, well nourished, no distress, non-toxic EYE EXAM: normal conjunctiva. PERRL and EOM's intact. OROPHARYNX: no exudate, no erythema, lips, buccal mucosa, and tongue normal and mucous membranes are moist NECK: supple, no nuchal rigidity, no adenopathy, non-tender LUNGS: Clear to auscultation. Normal chest wall mechanics HEART: no murmurs, S1 normal and S2 normal ABDOMEN: abdomen soft, non-tender, normo-active bowel sounds, no masses, no rebound or guarding. BACK: Back is symmetrical on inspection and there is no deformity, no midline tenderness, no CVA tenderness. SKIN: no rashes and no bruising UPPER EXTREMITIES: upper extremities are grossly normal. LOWER EXTREMITIES: No pitting edema. NEURO EXAM: Normal sensorium, cranial nerves II-XII intact, normal speech, no weakness of arms, no weakness of legs. No drift. Finger to nose intact. Gross sensation intact. MEDICAL DECISION MAKING: Patient is a 66-year-old female who presents ER for above-stated complaint. IV was established blood work was obtained. External records reviewed. Labs show no significant leukocytosis or anemia. BMP along with LFTs bilirubin was un remarkable. Troponin was negative. EKG nondiagnostic. CT angios of the head and neck were negative. She initially notes her symptoms did not change with movement but does later of elaborate that her dizziness is slightly worse with movement of her eyes as well as her head. She was given Antivert and Ativan with improvement/resolution of her nausea but she is still very dizzy. She was updated bedside. Discussed case with the hospitalist for further evaluation management treatment. Triage Nursing notes reviewed. Limited review of prior medical records performed Vital Signs: reviewed and remarkable for no significant abnormalities Differential diagnosis: Differential diagnosis includes etiologies such as benign positional vertigo, de hydration, hypovolemia, anemia, tumor, infection, hypoglycemia, electrolyte abnormalities, cardiac sources, intracerebral event, toxicologic, neurological, as well as others were entertained. ER treatment provided: See below Diagnostics interpreted by me include EKG and cardiac monitoring as listed below: -Cardiac Monitoring: An order was placed for continuous cardiac monitoring. The monitor shows a rate of 80 with sinus rhythm. -ECG: Sinus rhythm rate of 69 Normal axis No PVCs QTc 413 -Laboratory studies:Interpreted by me as stated above in MDM and shown below. Imaging studies: Xrays: As interpreted by me: Portable AP upright 1 view of the chest shows no focal CTs show: CT angio of the head and neck shows no acute clots Consultation(s): As described in MDM Procedures:none Critical Care: None Past Med/Surg History Medical History History of kidney stones Surgical History No pertinent past surgical history Social History Smoking Status: Never smoker Second Hand Exposure: No; Do You Dip or Chew Tobacco: No; Hx Alcohol Use: Yes Alcohol type: wine Hx Substance Use: No Preferred Language: Sinhala Communication Ability: Effective Machine Stamper Required: No Beliefs That Will Affect Care: None Current Living Situation: Spouse Feels Safe at Home: Yes Assistive Devices: None Allergies Allergies Allergy/AdvReac Type Severity Reaction Status Date / Time Penicillins Allergy Intermediate Rash Verified 10/24/22 15:04 Sulfa (Sulfonamide AdvReac Intermediate Vomiting Verified 10/24/22 15:04 Antibiotics) Home Meds Home Medications Medication Instructions Recorded Confirmed acetaminophen 500 mg tablet 1,000 mg PO Q6H PRN Pain 11/15/20 10/24/22 (Tylenol Extra Strength) lorazepam 1 mg tablet 1 mg PO BID PRN Anxiety 09/17/21 10/24/22 ramelteon 8 mg tablet 8 mg PO HS 10/24/22 10/24/22 trazodone 100 mg tablet 200 mg PO HS 10/24/22 10/24/22 Results & Data (ED) Vital Signs Vital Signs - 24 hr 10/24/22 11:35 10/24/22 12:15 Temperature 37.1 C Temperature Source Temporal Artery Scan Pulse Rate 91 H 75 Respiratory Rate 18 Blood Pressure 133/65 Blood Pressure Mean 87 Pulse Oximetry 98 Oxygen Delivery Method Room Air Sepsis Recent Fever Within 48 Hours No Sepsis New/Unexplained Change in Mental Status N/A Sepsis Action Taken by Nursing No Action Required Laboratory Data 10/24/22 12:20 10/24/22 12:20 Lab Results 10/24/22 10/24/22 Range/Units 12:20 12:20 WBC 8.30 (4.8-10.8) K/ul RBC 4.28 (4.20-5.40) M/uL Hgb 13.5 (12.0-16.0) g/dl Hct 39.7 (37.0-47.0) % MCV 92.8 (80.0-100.0) fL MCH 31.5 (25.0-34.0) pg MCHC 34.0 (32.0-36.0) g/dL RDW Std Deviation 39.9 (36.4-46.3) fL RDW Coeff of Laila 11.8 (11.5-14.5) % Plt Count 337 (130-400) K/uL MPV 9.0 L (9.4-12.4) fL Immature Gran % (Auto) 0.2 % Neut % (Auto) 71.7 % Lymph % (Auto) 22.2 % [place] % (Auto) 5.3 % Eos % (Auto) 0.2 % Baso % (Auto) 0.4 % Neut # (Auto) 5.95 (1.40-6.50) K/uL Lymph # (Auto) 1.84 (1.2-3.4) K/uL [place] # (Auto) 0.44 (0.11-0.59) K/uL Eos # (Auto) 0.02 (0-0.50) K/uL Baso # (Auto) 0.03 (0-0.2) K/uL Immature Gran # (Auto) 0.02 (0.01-0.20) K/uL Sodium 138 (136-145) mmol/L Potassium 4.4 (3.5-5.1) mmol/L Chloride 104 (98-107) mmol/L Carbon Dioxide 26 (21-32) mmol/L Anion Gap 8 (3-11) BUN 15 (6-23) mg/dl Creatinine 0.77 (0.6-1.2) mg/dl Est Cr Clr Drug Dosing 53.3 ml/min Est GFR ( Amer) 93.3 ml/min Est GFR (Non-Af Amer) 80.5 ml/min BUN/Creatinine Ratio 19.5 (10-20) Glucose 104 H (70-99(Fasting)) mg/dl Calcium 9.3 (8.6-10.3) mg/dl Total Bilirubin 0.4 (0.2-1.0) mg/dl AST 17 (13-39) U/L ALT 10 (7-52) U/L Alkaline Phosphatase 49 (34-104) U/L Troponin I High Sens 6.1 (0-14) pg/ml Total Protein 7.0 (6.0-8.3) gm/dl Albumin 4.2 (3.4-5.0) gm/dl Globulin 2.8 (2.5-4.0) gm/dl Albumin/Globulin Ratio 1.5 (0.9-2) Administered Medications Discontinued Medications Ioversol (Ioversol 350 Mg 125ml Prefilled Syringe) 114 ml IV ONCE ONE Stop: 10/24/22 13:57 Last Admin: 10/24/22 14:02 Dose: 114 ml Documented By: SARITHA Lorazepam (Lorazepam 2 Mg/1 Ml Vial) 0.5 mg IV NOW STA Stop: 10/24/22 12:08 Last Admin: 10/24/22 12:45 Dose: 0.5 mg Documented By: LUNA Meclizine HCl (Meclizine Hcl 25 Mg Tab) 25 mg PO NOW STA Stop: 10/24/22 12:08 Last Admin: 10/24/22 12:45 Dose: 25 mg Documented By: LUNA Imaging Data Radiologist's Impression: Chest X-Ray 10/24/22 12:02 SINGLE VIEW CHEST CLINICAL HISTORY: Dizziness FINDINGS: An AP, portable, upright chest radiograph is compared to study dated 09/17/2021 and correlated with chest CT dated 07/13/2020. The cardiomediastinal silhouette is unremarkable. The lungs and pleural spaces are clear. No pneumothorax is seen. The skeletal structures are osteopenic. The bony thorax is grossly intact. IMPRESSION: No active disease in the chest. ACT 112: Negative or not required by law. Electronically signed by: Carter Young M.D. 10/24/2022 12:54 PM Head CTA 10/24/22 12:03 CT ANGIOGRAM OF THE BRAIN COMBO; CT ANGIOGRAM OF THE NECK CLINICAL HISTORY: Headache. Vertigo. COMPARISON STUDY: CT of the brain dated 07/13/2020 TECHNIQUE: Unenhanced axial CT scan of the brain is performed. Subsequently, following the IV administration of 114 of Optiray 350, CT angiogram of the head and neck was performed from the aortic arch to the vertex. Images are reviewed in the axial, sagittal, and coronal planes. 3-D MIPS images are created and assessed. IV contrast was administered without complication. All measurements were calculated based on NASCET criteria. A dose lowering technique was uti lized adhering to the principles of ALARA. CT DOSE: 898.23 mGy.cm FINDINGS: Brain parenchyma: There is age-related involutional change noting minimal microangiopathic disease. There is no hemorrhage, mass effect, or evidence of acute territorial ischemia by CT criteria. There is no evidence of enhancing mass lesion on the angiogram phase images. The ventricles, sulci, and cisterns are prominent secondary to involutional change. Marroquin-white matter differentiation is preserved. No extra-axial fluid collection is seen. Thoracic aorta: Visualized portions of the thoracic aorta are normal in caliber. The aortic arch demonstrates standard 3-vessel anatomy. Right carotid arterial system: The right common carotid artery is widely patent, as are the right internal and external carotid arteries. Minimal calcified plaque is seen in the carotid bulb. Left carotid arterial system: The left common carotid artery is widely patent, as are the left internal and external carotid arteries. Minimal calcified plaque is seen in the carotid bulb. Vertebral arteries: The vertebral arteries are widely patent bilaterally and co dominant. Subclavian arteries: Widely patent bilaterally. Atherosclerotic calcification is seen on the left. Intracranial vasculature: There is atherosclerotic calcification of the cavernous carotid arteries. The internal carotid arteries are patent at the skull base, as are the anterior and middle cerebral arteries bilaterally. The right A1 segment is atretic. The vertebrobasilar system and posterior cerebral arteries are widely patent. The vertebral arteries are codominant. There is no aneurysm, high-grade stenosis, or focal vessel cut off seen throughout the intracranial circulation. Jugular veins: Patent bilaterally. Dural sinuses: Patent. Lung apices: Partially visualized upper lobe lung parenchyma appears clear. Soft tissues: The visualized pharyngeal soft tissues are normal in appearance noting angiographic phase technique. The oropharyngeal airway appears widely patent. The salivary and thyroid glands are normal in appearance. No cervical lymphadenopathy is seen. Skeletal structures: The skeletal structures are osteopenic. The calvarium appears intact. The cervical spine is noting mild spondylosis. No lytic or blastic lesion is seen. Orbits: The bony orbits are intact. Orbital contents are normal as visualized noting bilateral ocular lens implants. Sinuses and mastoids: The paranasal sinuses are clear. The mastoid air cells are well pneumatized. IMPRESSION: 1. There is no hemorrhage, mass effect, or evidence of acute territorial ischemia by CT criteria. 2. Unremarkable CT angiogram of the brain. 3. Unremarkable CT angiogram of the neck. ACT 112: Negative or not required by law. Electronically signed by: Carter Young M.D. 10/24/2022 2:29 PM Neck CTA 10/24/22 12:03 CT ANGIOGRAM OF THE BRAIN COMBO; CT ANGIOGRAM OF THE NECK CLINICAL HISTORY: Headache. Vertigo. COMPARISON STUDY: CT of the brain dated 07/13/2020 TECHNIQUE: Unenhanced axial CT scan of the brain is performed. Subsequently, following the IV administration of 114 of Optiray 350, CT angiogram of the head and neck was performed from the aortic arch to the vertex. Images are reviewed in the axial, sagittal, and coronal planes. 3-D MIPS images are created and assessed. IV contrast was administered without complication. All measurements were calculated based on NASCET criteria. A dose lowering technique was utilized adhering to the principles of ALARA. CT DOSE: 898.23 mGy.cm FINDINGS: Brain parenchyma: There is age-related involutional change noting minimal microangiopathic disease. There is no hemorrhage, mass effect, or evidence of acute territorial ischemia by CT criteria. There is no evidence of enhancing m ass lesion on the angiogram phase images. The ventricles, sulci, and cisterns are prominent secondary to involutional change. Marroquin-white matter differentiation is preserved. No extra-axial fluid collection is seen. Thoracic aorta: Visualized portions of the thoracic aorta are normal in caliber. The aortic arch demonstrates standard 3-vessel anatomy. Right carotid arterial system: The right common carotid artery is widely patent, as are the right internal and external carotid arteries. Minimal calcified plaque is seen in the carotid bulb. Left carotid arterial system: The left common carotid artery is widely patent, as are the left internal and external carotid arteries. Minimal calcified plaque is seen in the carotid bulb. Vertebral arteries: The vertebral arteries are widely patent bilaterally and codominant. Subclavian arteries: Widely patent bilaterally. Atherosclerotic calcification is seen on the left. Intracranial vasculature: There is atherosclerotic calcification of the cavernous carotid arteries. The internal carotid arteries are patent at the skull base, as are the anterior and middle cerebral arteries bilaterally. The right A1 segment is atretic. The vertebrobasilar system and posterior cerebral arteries are widely patent. The vertebral arteries are codominant. There is no aneurysm, high-grade stenosis, or focal vessel cut off seen throughout the intracranial circulation. Jugular veins: Patent bilaterally. Dural sinuses: Patent. Lung apices: Partially visualized upper lobe lung parenchyma appears clear. Soft tissues: The visualized pharyngeal soft tissues are normal in appearance noting angiographic phase technique. The oropharyngeal airway appears widely patent. The salivary and thyroid glands are normal in appearance. No cervical lymphadenopathy is seen. Skeletal structures: The skeletal structures are osteopenic. The calvarium appears intact. The cervical spine is noting mild spondylosis. No lytic or blastic lesion is seen. Orbits: The bony orbits are intact. Orbital contents are normal as visualized noting bilateral ocular lens implants. Sinuses and mastoids: The paranasal sinuses are clear. The mastoid air cells are well pneumatized. IMPRESSION: 1. There is no hemorrhage, mass effect, or evidence of acute territorial ischemia by CT criteria. 2. Unremarkable CT angiogram of the brain. 3. Unremarkable CT angiogram of the neck. ACT 112: Negative or not required by law. Electronically signed by: Carter Young M.D. 10/24/2022 2:29 PM Discharge Plan Visit Data Chief Complaint: Dizziness Stated Complaint: DIZZY,CANT EAT,NAUSEA ED Provider: Diego Stevens Discharge Problem: Dizziness, Nausea Forms Stand Alone Forms: [facility] Prescriptions Prescriptions: No Action lorazepam 1 mg tablet 1 mg PO BID PRN (Reason: Anxiety) acetaminophen [Tylenol Extra Strength] 500 mg Tablet 1,000 mg PO Q6H PRN (Reason: Pain) trazodone 100 mg tablet 200 mg PO HS ramelteon 8 mg tablet 8 mg PO HS Referrals Referrals: Aimee Sesay MD [Primary Care Provider] -
[2022-10-24 12:45] LABS: Basophils # (auto) 0.03 K/uL (0-0.2); Basophils % (auto) 0.4 %; Eosinophils # (auto) 0.02 K/uL (0-0.50); Eosinophils % (auto) 0.2 %; Hematocrit (blood only) 39.7 % (37.0-47.0); Hemoglobin 13.5 g/dl (12.0-16.0); Immature Granulocytes # (auto) 0.02 K/uL (0.01-0.20); Immature Granulocytes % (auto) 0.2 %; Lymphocytes # (auto) 1.84 K/uL (1.2-3.4); Lymphocytes % (auto) 22.2 %; Mean Corpuscular Hemoglobin 31.5 pg (25.0-34.0); Mean Corpuscular Volume 92.8 fL (80.0-100.0); Monocytes # (auto) 0.44 K/uL (0.11-0.59); Monocytes % (auto) 5.3 %; Neutrophils # (auto) 5.95 K/uL (1.40-6.50); Neutrophils % (auto) 71.7 %; Platelet Count 337 K/uL (130-400); RDW Coefficient of Variation 11.8 % (11.5-14.5); RDW Standard Deviation 39.9 fL (36.4-46.3); Red Blood Count 4.28 M/uL (4.20-5.40)
--- NOTE | 2022-10-24 12:55 | XRay Report ---
SINGLE VIEW CHEST CLINICAL HISTORY: Dizziness FINDINGS: An AP, portable, upright chest radiograph is compared to study dated 09/17/2021 and correlate d with chest CT dated 07/13/2020. The cardiomediastinal silhouette is unremarkable. The lungs and pleu ral spaces are clear. No pneumothorax is seen. The skeletal structures are osteopenic. The bony thora x is grossly intact. IMPRESSION: No active disease in the chest. ACT 112: Negative or not required by law. Electronically signed by: Carter Young M.D. 10/24/2022 12:54 PM
[2022-10-24 13:01] LABS: Albumin Globulin Ratio 1.5 (0.9-2); Albumin Level 4.2 gm/dl (3.4-5.0); BUN Creatinine Ratio 19.5 (10-20); Bilirubin,Total 0.4 mg/dl (0.2-1.0); Calcium 9.3 mg/dl (8.6-10.3); Creatinine Clr Calc Pharmacy 53.3 ml/min; Est GFR (African American) 93.3 ml/min; Est GFR (Non-African American) 80.5 ml/min; Globulin 2.8 gm/dl (2.5-4.0); Potassium 4.4 mmol/L (3.5-5.1)
[2022-10-24 13:08] LABS: Troponin I High Sensitivity 6.1 pg/ml (0-14)
[2022-10-24] MEDS ORDERED: IOVERSOL 350 MG 125mL Prefilled Syringe IV ONE (13:56)
--- NOTE | 2022-10-24 14:31 | CT Scan Report ---
CT ANGIOGRAM OF THE BRAIN COMBO; CT ANGIOGRAM OF THE NECK CLINICAL HISTORY: Headache. Vertigo. COMPARISON STUDY: CT of the brain dated 07/13/2020 TECHNIQUE: Unenhanced axial CT scan of the brain is performed. Subsequently, following the IV adminis tration of 114 of Optiray 350, CT angiogram of the head and neck was performed from the aortic arch t o the vertex. Images are reviewed in the axial, sagittal, and coronal planes. 3-D MIPS images are cre ated and assessed. IV contrast was administered without complication. All measurements were calculate d based on NASCET criteria. A dose lowering technique was utilized adhering to the principles of ALA RA. CT DOSE: 898.23 mGy.cm FINDINGS: Brain parenchyma: There is age-related involutional change noting minimal microangiopathic disease. T here is no hemorrhage, mass effect, or evidence of acute territorial ischemia by CT criteria. There i s no evidence of enhancing mass lesion on the angiogram phase images. The ventricles, sulci, and cist erns are prominent secondary to involutional change. Marroquin-white matter differentiation is preserved. No extra-axial fluid collection is seen. Thoracic aorta: Visualized portions of the thoracic aorta are normal in caliber. The aortic arch demo nstrates standard 3-vessel anatomy. Right carotid arterial system: The right common carotid artery is widely patent, as are the right int ernal and external carotid arteries. Minimal calcified plaque is seen in the carotid bulb. Left carotid arterial system: The left common carotid artery is widely patent, as are the left ad operations intern al and external carotid arteries. Minimal calcified plaque is seen in the carotid bulb. Vertebral arteries: The vertebral arteries are widely patent bilaterally and codominant. Subclavian arteries: Widely patent bilaterally. Atherosclerotic calcification is seen on the left. Intracranial vasculature: There is atherosclerotic calcification of the cavernous carotid arteries. T he internal carotid arteries are patent at the skull base, as are the anterior and middle cerebral ar teries bilaterally. The right A1 segment is atretic. The vertebrobasilar system and posterior cerebra l arteries are widely patent. The vertebral arteries are codominant. There is no aneurysm, high-grade stenosis, or focal vessel cut off seen throughout the intracranial circulation. Jugular veins: Patent bilaterally. Dural sinuses: Patent. Lung apices: Partially visualized upper lobe lung parenchyma appears clear. Soft tissues: The visualized pharyngeal soft tissues are normal in appearance noting angiographic pha se technique. The oropharyngeal airway appears widely patent. The salivary and thyroid glands are nor mal in appearance. No cervical lymphadenopathy is seen. Skeletal structures: The skeletal structures are osteopenic. The calvarium appears intact. The cervic al spine is noting mild spondylosis. No lytic or blastic lesion is seen. Orbits: The bony orbits are intact. Orbital contents are normal as visualized noting bilateral ocular lens implants. Sinuses and mastoids: The paranasal sinuses are clear. The mastoid air cells are well pneumatized. IMPRESSION: 1. There is no hemorrhage, mass effect, or evidence of acute territorial ischemia by CT criteria. 2. Unremarkable CT angiogram of the brain. 3. Unremarkable CT angiogram of the neck. ACT 112: Negative or not required by law. Electronically signed by: Carter Young M.D. 10/24/2022 2:29 PM
--- NOTE | 2022-10-24 16:29 | History & Physical Report ---
Date of Service October 24, 2022 Assessment & Plan (1) Dizziness: (2) Nausea: Plan: Patient is 66-year-old female with PMH anxiety, depression, insomnia, CKD III presented to ER with complaint of dizziness, nausea with movement x 2 days. DDX: Benign positional vertigo, medication side effect Possible dizziness and nausea may be caused by Auvelity (dextromethorphan, bupropion). This med has already been discontinued. Last dose 4 days ago. In ER vitals stable. No leukocytosis, no significant electrolyte abnormality CTA head and neck: Unremarkable In ER given meclizine, IV lorazepam. Patient reports some improvement after IV Ativan Fall precautions Orthostatic vitals IVF Clear liquid diet for now as patient with nausea Meclizine, lorazepam as needed dizziness PT eval, consider Wild maneuver If symptoms persist or worsen consider MRI brain, and/or neuro consult CBC, BMP, TSH in a.m. (3) Anxiety and depression: (4) Insomnia: Plan: Currently following with psychiatry [facility]. Plans to follow with [place] on 11/04/22 Continue ramelteon, trazodone, lorazepam as needed (5) CKD (chronic kidney disease), stage III: Plan: Creatinine at baseline DVT Prophylaxis SCDs Follows with Dr Sesay for routine care Pt was seen and care coordinated with Dr Solorzano. See addendum I spent a total of 75 minutes reviewing notes, outpatient records, labs, medication, coordinating, documenting and providing care for this patient excluding time spent in the performance of separately billed services. History of Present Illness Chief Complaint: Dizziness Primary Care Provider: Aimee Sesay MD Patient is 66-year-old female with PMH anxiety, depression, insomnia, CKD III presented to ER with complaint of dizziness x 2 days. History obtained from patient and patient's . Patient states 2 days ago had sudden onset of dizziness that she describes as spinning sensation when she moved her eyes. Dizziness aggravated with any movement. Also c/o nausea. No vomiting. States no appetite secondary to the nausea. Dizziness persisted and today feels dizziness is worse. Patient states over 2 weeks ago was started on Auvelity. States soon after starting it started with sore and dry mouth. Denies any known oral ulcers. She reports that she contacted prescriber and was told to taper off medication. She was on it BID for 2 weeks and tapered down to daily x 4 days. Last dose was on 10/20/22. She was seen in [facility] ER on 10/19/22 for mouth dryness and mouth pain. Was given magic mouthwash and reports resolution of mouth soreness. Reports is also under increased stress with recent of friend. She currently is following with [facility]- [facility] in [place] but has appointment with [place] on 11/04/22 for second opinion. Denies fever/chills, diaphoresis, diarrhea, RODRIGUES, syncope, diplopia, loss of vision, blurry vision, neck pain, CP, SOB, palpitations, cough, sore throat, rhinorrhea, abdominal pain, paresthesias, weakness, extremity weakness, extremity edema, rashes, urinary symptoms, fall or trauma. Allergies Allergy/AdvReac Type Severity Reaction Status Date / Time Penicillins Allergy Intermediate Rash Verified 10/24/22 15:04 Sulfa (Sulfonamide AdvReac Intermediate Vomiting Verified 10/24/22 15:04 Antibiotics) Home Medications Medication Instructions Recorded Confirmed Type acetaminophen 500 mg tablet 1,000 mg PO Q6H PRN Pain 11/15/20 10/24/22 History (Tylenol Extra Strength) lorazepam 1 mg tablet 1 mg PO BID PRN Anxiety 09/17/21 10/24/22 History ramelteon 8 mg tablet 8 mg PO HS 10/24/22 10/24/22 History solifenacin 5 mg tablet 5 mg PO DAILY 10/24/22 10/24/22 History trazodone 100 mg tablet 200 mg PO HS 10/24/22 10/24/22 History Past Med/Surg History Medical History Anxiety and depression CKD (chronic kidney disease), stage III History of kidney stones Insomnia Surgical History History of colonoscopy Family History Other Heart disease Social History Smoking Status: Never smoker Second Hand Exposure: No; Do You Dip or Chew Tobacco: No; Hx Alcohol Use: Yes Alcohol type: wine Hx Substance Use: No Preferred Language: Tajik Communication Ability: 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 Beliefs That Will Affect Care: None Current Living Situation: Spouse Other Information That Helps Us Care for You: No Feels Safe at Home: Yes Safety Concerns: Feels Safe At This Time Assistive Devices: Glasses Review of Systems Review of Systems: All systems reviewed & are unremarkable except as noted in HPI & below Physical Exam Physical Exam: General: + mild distress is anxious and tearful, thin female Head: normocephalic, atraumatic Eyes: PERRL, EOM's intact, conjunctiva non-injected, anicteric ENT: normal inspection external ears, nose, mucous membranes moist Neck: supple, trachea midline Lungs: clear, no respiratory distress, no wheezing/rhonchi/rales CV: RRR, no murmur, no pretibial edema Abd: normal BS, soft, non-tender Ext: no cyanosis, no calf tenderness Neuro: A&O x 3, +lateral nystagmus noted, no other focal deficits noted, +anxious affect, +tearful Skin: warm, dry Results & Data Results & Data Vital Signs (Past 12 Hours) Vital Signs Temp Pulse Resp BP Pulse Ox O2 Del Method 10/24/22 16:13 81 10/24/22 12:15 75 10/24/22 11:35 37.1 C 91 H 18 133/65 98 Room Air Laboratory Results Short CBC 10/24/22 Range/Units 12:20 WBC 8.30 (4.8-10.8) K/ul Hgb 13.5 (12.0-16.0) g/dl Hct 39.7 (37.0-47.0) % Plt Count 337 (130-400) K/uL BMP 10/24/22 12:20 Sodium 138 Potassium 4.4 Chloride 104 Carbon Dioxide 26 BUN 15 Creatinine 0.77 Glucose 104 H Calcium 9.3 Liver Function 10/24/22 Range/Units 12:20 Total Bilirubin 0.4 (0.2-1.0) mg/dl AST 17 (13-39) U/L ALT 10 (7-52) U/L Alkaline Phosphatase 49 (34-104) U/L Albumin 4.2 (3.4-5.0) gm/dl Diagnostic Findings Chest X-Ray 10/24/22 12:02 SINGLE VIEW CHEST CLINICAL HISTORY: Dizziness FINDINGS: An AP, portable, upright chest radiograph is compared to study dated 09/17/2021 and correlated with chest CT dated 07/13/2020. The cardiomediastinal silhouette is unremarkable. The lungs and pleural spaces are clear. No pneumothorax is seen. The skeletal structures are osteopenic. The bony thorax is grossly intact. IMPRESSION: No active disease in the chest. ACT 112: Negative or not required by law. Electronically signed by: Carter Young M.D. 10/24/2022 12:54 PM Head CTA 10/24/22 12:03 CT ANGIOGRAM OF THE BRAIN COMBO; CT ANGIOGRAM OF THE NECK CLINICAL HISTORY: Headache. Vertigo. COMPARISON STUDY: CT of the brain dated 07/13/2020 TECHNIQUE: Unenhanced axial CT scan of the brain is performed. Subsequently, following the IV administration of 114 of Optiray 350, CT angiogram of the head and neck was performed from the aortic arch to the vertex. Images are reviewed in the axial, sagittal, and coronal planes. 3-D MIPS images are created and assessed. IV contrast was administered without complication. All measurements we re calculated based on NASCET criteria. A dose lowering technique was utilized adhering to the principles of ALARA. CT DOSE: 898.23 mGy.cm FINDINGS: Brain parenchyma: There is age-related involutional change noting minimal microangiopathic disease. There is no hemorrhage, mass effect, or evidence of acute territorial ischemia by CT criteria. There is no evidence of enhancing mass lesion on the angiogram phase images. The ventricles, sulci, and cisterns are prominent secondary to involutional change. Marroquin-white matter differentiation is preserved. No extra-axial fluid collection is seen. Thoracic aorta: Visualized portions of the thoracic aorta are normal in caliber. The aortic arch demonstrates standard 3-vessel anatomy. Right carotid arterial system: The right common carotid artery is widely patent, as are the right internal and external carotid arteries. Minimal calcified plaque is seen in the carotid bulb. Left carotid arterial system: The left common carotid artery is widely patent, as are the left internal and external carotid arteries. Minimal calcified plaque is seen in the carotid bulb. Vertebral arteries: The vertebral arteries are widely patent bilaterally and codominant. Subclavian arteries: Widely patent bilaterally. Atherosclerotic calcification is seen on the left. Intracranial vasculature: There is atherosclerotic calcification of the cavernous carotid arteries. The internal carotid arteries are patent at the skull base, as are the anterior and middle cerebral arteries bilaterally. The right A1 segment is atretic. The vertebrobasilar system and posterior cerebral arteries are widely patent. The vertebral arteries are codominant. There is no aneurysm, high-grade stenosis, or focal vessel cut off seen throughout the intracranial circulation. Jugular veins: Patent bilaterally. Dural sinuses: Patent. Lung apices: Partially visualized upper lobe lung parenchyma appears clear. Soft tissues: The visualized pharyngeal soft tissues are normal in appearance noting angiographic phase technique. The oropharyngeal airway appears widely patent. The salivary and thyroid glands are normal in appearance. No cervical lymphadenopathy is seen. Skeletal structures: The skeletal structures are osteopenic. The calvarium appears intact. The cervical spine is noting mild spondylosis. No lytic or blastic lesion is seen. Orbits: The bony orbits are intact. Orbital contents are normal as visualized noting bilateral ocular lens implants. Sinuses and mastoids: The paranasal sinuses are clear. The mastoid air cells are well pneumatized. IMPRESSION: 1. There is no hemorrhage, mass effect, or evidence of acute territorial ischemia by CT criteria. 2. Unremarkable CT angiogram of the brain. 3. Unremarkable CT angiogram of the neck. ACT 112: Negative or not required by law. Electronically signed by: Carter Young M.D. 10/24/2022 2:29 PM Neck CTA 10/24/22 12:03 CT ANGIOGRAM OF THE BRAIN COMBO; CT ANGIOGRAM OF THE NECK CLINICAL HISTORY: Headache. Vertigo. COMPARISON STUDY: CT of the brain dated 07/13/2020 TECHNIQUE: Unenhanced axial CT scan of the brain is performed. Subsequently, following the IV administration of 114 of Optiray 350, CT angiogram of the head and neck was performed from the aortic arch to the vertex. Images are reviewed in the axial, sagittal, and coronal planes. 3-D MIPS images are created and assessed. IV contrast was administered without complication. All measurements were calculated based on NASCET criteria. A dose lowering technique was utilized adhering to the principles of ALARA. CT DOSE: 898.23 mGy.cm FINDINGS: Brain parenchyma: There is age-related involutional change noting minimal microangiopathic disease. There is no hemorrhage, mass effect, or evidence of acute territorial ischemia by CT criteria. There is no evidence of enhancing mass lesion on the angiogram phase images. The ventricles, sulci, and cisterns are prominent secondary to involutional change. Marroquin-white matter differentiation is preserved. No extra-axial fluid collection is seen. Thoracic aorta: Visualized portions of the thoracic aorta are normal in caliber. The aortic arch demonstrates standard 3-vessel anatomy. Right carotid arterial system: The right common carotid artery is widely patent, as are the right internal and external carotid arteries. Minimal calcified plaque is seen in the carotid bulb. Left carotid arterial system: The left common carotid artery is widely patent, as are the left internal and external carotid arteries. Minimal calcified plaque is seen in the carotid bulb. Vertebral arteries: The vertebral arteries are widely patent bilaterally and codominant. Subclavian arteries: Widely patent bilaterally. Atherosclerotic calcification is seen on the left. Intracranial vasculature: There is atherosclerotic calcification of the cavernous carotid arteries. The internal carotid arteries are patent at the skull base, as are the anterior and middle cerebral arteries bilaterally. The right A1 segment is atretic. The vertebrobasilar system and posterior cerebral arteries are widely patent. The vertebral arteries are codominant. There is no aneurysm, high-grade stenosis, or focal vessel cut off seen throughout the intracranial circulation. Jugular veins: Patent bilaterally. Dural sinuses: Patent. Lung apices: Partially visualized upper lobe lung parenchyma appears clear. Soft tissues: The visualized pharyngeal soft tissues are normal in appearance noting angiographic phase technique. The oropharyngeal airway appears widely patent. The salivary and thyroid glands are normal in appearance. No cervical lymphadenopathy is seen. Skeletal structures: The skeletal structures are osteopenic. The calvarium appears intact. The cervical spine is noting mild spondylosis. No lytic or blastic lesion is seen. Orbits: The bony orbits are intact. Orbital contents are normal as visualized noting bilateral ocular lens implants. Sinuses and mastoids: The paranasal sinuses are clear. The mastoid air cells are well pneumatized. IMPRESSION: 1. There is no hemorrhage, mass effect, or evidence of acute territorial ischemia by CT criteria. 2. Unremarkable CT angiogram of the brain. 3. Unremarkable CT angiogram of the neck. ACT 112: Negative or not required by law. Electronically signed by: Carter Young M.D. 10/24/2022 2:29 PM ECG Additional Comments: rate 69, sinus rhythm, no significant ST elevation per my interpretation Supervising Physician Co-Signing Physician Notes Pt seen and examined by myself, Aye Solorzano MD on the day of service. Care was coordinated with Barby Lopez PA-C. Please refer to her note for additional information. 66yoF admitted with vertigo/dizziness. Meclizine, Ativan (pt notes improvement with it and has short term role in severe BPPV), pt/ot for Wild maneuvers. Consider MRI brain or neurology consult if symptoms persist. Otherwise as above.
[2022-10-24] MEDS ORDERED: ACETAMINOPHEN 325 MG TAB PO PRN (16:40)
[2022-10-24] MEDS ORDERED: POLYETHYLENE (MIRALAX) 17 GM PACK PO PRN (16:40)
[2022-10-24] MEDS ORDERED: ONDANSETRON INJ 2 MG/ML 2 ML VIAL IV PRN (16:40)
[2022-10-24] MEDS ORDERED: PROMETHAZINE HCL 12.5 MG in SODIUM CHLORIDE 0.9% 50 ML IV PRN (16:50)
[2022-10-24] MEDS ORDERED: SODIUM CHLORIDE 0.9% 1000ML 1,000 ML IV SCH (17:00)
[2022-10-24] MEDS ORDERED: LORazepam 1 MG TAB PO PRN (17:03)
[2022-10-24] MEDS ORDERED: MECLIZINE HCL 25 MG TAB PO ONE (17:33)
[2022-10-24] MEDS ORDERED: PROMETHAZINE 12.5 MG/50.5 ML NSS IV ONE (17:33)
[2022-10-24] MEDS: MECLIZINE HCL 25 MG TAB PO PRN (17:47)
--- NOTE | 2022-10-24 17:55 | Electrocardiogram Report ---
Test Reason : Blood Pressure : / mmHG Vent. Rate : 069 BPM Atrial Rate : 069 BPM P-R Int : 168 ms QRS Dur : 074 ms QT Int : 386 ms P-R-T Axes : 061 026 052 degrees QTc Int : 413 ms Normal sinus rhythm Normal ECG Confirmed by Kane Lerma ([id number]) on 10/24/2022 5:54:41 PM Referred By: REFERRED SELF Confirmed By:David Lerma
[2022-10-24] MEDS ORDERED: traZODone HCL 100 MG TAB PO SCH (21:00)
[2022-10-25] MEDS: LORazepam 1 MG TAB PO PRN ×2 (00:05→10:54)
[2022-10-25] MEDS: MECLIZINE HCL 25 MG TAB PO PRN ×3 (00:47→12:33)
[2022-10-25 06:04] LABS: Hematocrit (blood only) 36.7 % (37.0-47.0); Hemoglobin 12.5 g/dl (12.0-16.0); Mean Corpuscular Hemoglobin 31.3 pg (25.0-34.0); Mean Corpuscular Hgb Conc 34.1 g/dL (32.0-36.0); Mean Corpuscular Volume 91.8 fL (80.0-100.0); Mean Platelet Volume 8.7 fL (9.4-12.4); Platelet Count 309 K/uL (130-400); RDW Coefficient of Variation 11.8 % (11.5-14.5); RDW Standard Deviation 39.8 fL (36.4-46.3); White Blood Count 7.03 K/ul (4.8-10.8)
[2022-10-25 06:33] LABS: Est GFR (African American) 105.6 ml/min; Est GFR (Non-African American) 91.2 ml/min; Potassium 3.5 mmol/L (3.5-5.1)
[2022-10-25 06:34] LABS: BUN Creatinine Ratio 17.6 (10-20); Calcium 8.5 mg/dl (8.6-10.3); Creatinine Clr Calc Pharmacy 62.6 ml/min; Magnesium 2.1 mg/dl (1.7-2.4)
[2022-10-25] MEDS ORDERED: OXYBUTYNIN CHLORIDE XL 5 MG TABCR PO SCH (09:00)
--- NOTE | 2022-10-25 12:11 | Hospitalist Progress Note ---
Date of Service October 25, 2022 Assessment & Plan (1) Dizziness: (2) Nausea: Plan: Patient is 66-year-old female with PMH anxiety, depression, insomnia, CKD III presented to ER with complaint of dizziness, nausea with movement x 2 days. Dizziness/Nausea Likely secondary to medications: Auvelity, trazodone, Ramelteon DD: BPPV --Head/Neck CTA:There is no hemorrhage, mass effect, or evidence of acute territorial ischemia by CT criteria. Unremarkable CT angiogram of the brain. Unremarkable CT angiogram of the neck. -- Normal orthostatics --No issues on telemetry --Ability has been discontinued 4 days ago Meclizine as needed PT for Wild's Advance as tolerated Will decrease trazodone dose to 100 mg at bedtime Likely discharge home today (3) Anxiety and depression: (4) Insomnia: Plan: Currently following with [facility]. Plans to follow with [place] on 11/04/22 Continue ramelteon, trazodone, lorazepam as needed Plan to decrease trazodone as above (5) CKD (chronic kidney disease), stage III: Plan: Creatinine at baseline DVT Prophylaxis SCDs CODE STATUS Full Code Admission and Anticipated Discharge Date Admission Date: October 24, 2022 Subjective Patient is seen and examined at bedside States dizziness mostly resolved No rhythm issues on monitor Orthostatics negative Denies any chest pain, dyspnea, nausea, vomiting Tolerating diet Eager to get discharged Review of Systems Review of Systems: All systems reviewed & are unremarkable except as noted in Subjective Physical Exam Physical Exam: Physical Exam: Vitals signs as noted above General Appearance:Thin, frail, no apparent distress Head: normocephalic, Atraumatic Eyes: normal inspection, EOMI Neck: supple, Trachea midline Respiratory/Chest: Decreased breath sounds, CTA, No accessory muscle use Cardiovascular: S1, S2, No murmur Abdomen/GI:Soft, Non tender, Bowel sounds present Extremities/Musculoskeletal:normal inspection, no edema Neurologic/Psych:AAOX3, grossly no focal neurological deficits Skin: normal color, warm Results & Data Results & Data Vital Signs (Past 12 Hours) Vital Signs Temp Pulse Pulse Resp BP BP Pulse Ox 10/25/22 11:14 36.7 C 71 18 128/72 97 10/25/22 07:32 36.7 C 74 18 107/66 96 10/25/22 07:21 63 10/25/22 02:56 36.6 C 67 18 102/59 L 97 10/25/22 00:49 36.5 C 94 H 18 121/69 98 O2 Del Method 10/25/22 11:14 Room Air 10/25/22 07:32 Room Air 10/25/22 07:21 10/25/22 02:56 Room Air 10/25/22 00:49 Room Air Laboratory Results Short CBC 10/24/22 10/25/22 Range/Units 12:20 05:31 WBC 8.30 7.03 (4.8-10.8) K/ul Hgb 13.5 12.5 (12.0-16.0) g/dl Hct 39.7 36.7 L (37.0-47.0) % Plt Count 337 309 (130-400) K/uL BMP 10/24/22 10/25/22 12:20 05:31 Sodium 138 140 Potassium 4.4 3.5 D Chloride 104 109 H Carbon Dioxide 26 28 BUN 15 12 Creatinine 0.77 0.68 Glucose 104 H 79 Calcium 9.3 8.5 L Liver Function 10/24/22 Range/Units 12:20 Total Bilirubin 0.4 (0.2-1.0) mg/dl AST 17 (13-39) U/L ALT 10 (7-52) U/L Alkaline Phosphatase 49 (34-104) U/L Albumin 4.2 (3.4-5.0) gm/dl
--- NOTE | 2022-10-25 14:38 | Discharge Summary ---
Date of Service October 25, 2022 Admission HPI Per Admitting Provider Patient is 66-year-old female with PMH anxiety, depression, insomnia, CKD III presented to ER with complaint of dizziness x 2 days. History obtained from patient and patient's . Patient states 2 days ago had sudden onset of dizziness that she describes as spinning sensation when she moved her eyes. Dizziness aggravated with any movement. Also c/o nausea. No vomiting. States no appetite secondary to the nausea. Dizziness persisted and today feels dizziness is worse. Patient states over 2 weeks ago was started on Auvelity. States soon after starting it started with sore and dry mouth. Denies any known oral ulcers. She reports that she contacted prescriber and was told to taper off medication. She was on it BID for 2 weeks and tapered down to daily x 4 days. Last dose was on 10/20/22. She was seen in [facility] on 10/19/22 for mouth dryness and mouth pain. Was given magic mouthwash and reports resolution of mouth soreness. Reports is also under increased stress with recent of friend. She currently is following with [facility] in [place] but has appointment with [facility] on 11/04/22 for second opinion. Denies fever/chills, diaphoresis, diarrhea, RODRIGUES, syncope, diplopia, loss of vision, blurry vision, neck pain, CP, SOB, palpitations, cough, sore throat, rhinorrhea, abdominal pain, paresthesias, weakness, extremity weakness, extremity edema, rashes, urinary symptoms, fall or trauma. Admission Exam Per Admitting Provider GENERAL: unco anxious, underweight, no respiratory distress SKIN: Normal color, warm HEENT: Rittman palpebral conjunctivae, no ptosis, dry buccal mucosa NECK : Supple, no tenderness CHEST : CTA, no tenderness HEART : RRR, no obvious murmurs ABDOMEN:no distention, nontender EXTREMITIES : No LE swelling/tenderness, no other conspicuous deformities noted NEUROLOGIC : Coherent, no facial asymmetry, no other gross focality Principal Diagnosis Dizziness Discharge Data Allergies Allergy/AdvReac Type Severity Reaction Status Date / Time Penicillins Allergy Intermediate Rash Verified 10/24/22 15:04 Sulfa (Sulfonamide AdvReac Intermediate Vomiting Verified 10/24/22 15:04 Antibiotics) Consultations 10/24/22 14:54 ED Decision to Admit Stat Procedures Performed Laboratory Results WBC 7.03 K/ul (4.8-10.8) 10/25/22 05:31 RBC 4.00 M/uL (4.20-5.40) L 10/25/22 05:31 Hgb 12.5 g/dl (12.0-16.0) 10/25/22 05:31 Hct 36.7 % (37.0-47.0) L 10/25/22 05:31 MCV 91.8 fL (80.0-100.0) 10/25/22 05:31 MCH 31.3 pg (25.0-34.0) 10/25/22 05:31 MCHC 34.1 g/dL (32.0-36.0) 10/25/22 05:31 RDW Std Deviation 39.8 fL (36.4-46.3) 10/25/22 05:31 RDW Coeff of Laila 11.8 % (11.5-14.5) 10/25/22 05:31 Plt Count 309 K/uL (130-400) 10/25/22 05:31 MPV 8.7 fL (9.4-12.4) L 10/25/22 05:31 Immature Gran % (Auto) 0.2 % 10/24/22 12:20 Neut % (Auto) 71.7 % 10/24/22 12:20 Lymph % (Auto) 22.2 % 10/24/22 12:20 Butler % (Auto) 5.3 % 10/24/22 12:20 Eos % (Auto) 0.2 % 10/24/22 12:20 Baso % (Auto) 0.4 % 10/24/22 12:20 Neut # (Auto) 5.95 K/uL (1.40-6.50) 10/24/22 12:20 Lymph # (Auto) 1.84 K/uL (1.2-3.4) 10/24/22 12:20 Butler # (Auto) 0.44 K/uL (0.11-0.59) 10/24/22 12:20 Eos # (Auto) 0.02 K/uL (0-0.50) 10/24/22 12:20 Baso # (Auto) 0.03 K/uL (0-0.2) 10/24/22 12:20 Immature Gran # (Auto) 0.02 K/uL (0.01-0.20) 10/24/22 12:20 Sodium 140 mmol/L (136-145) 10/25/22 05:31 Potassium 3.5 mmol/L (3.5-5.1) D 10/25/22 05:31 Chloride 109 mmol/L (98-107) H 10/25/22 05:31 Carbon Dioxide 28 mmol/L (21-32) 10/25/22 05:31 Anion Gap 3 (3-11) 10/25/22 05:31 BUN 12 mg/dl (6-23) 10/25/22 05:31 Creatinine 0.68 mg/dl (0.6-1.2) 10/25/22 05:31 Est Cr Clr Drug Dosing 62.6 ml/min 10/25/22 05:31 Est GFR ( Amer) 105.6 ml/min 10/25/22 05:31 Est GFR (Non-Af Amer) 91.2 ml/min 10/25/22 05:31 BUN/Creatinine Ratio 17.6 (10-20) 10/25/22 05:31 Glucose 79 mg/dl (70-99(Fasting)) 10/25/22 05:31 Calcium 8.5 mg/dl (8.6-10.3) L 10/25/22 05:31 Magnesium 2.1 mg/dl (1.7-2.4) 10/25/22 05:31 Total Bilirubin 0.4 mg/dl (0.2-1.0) 10/24/22 12:20 AST 17 U/L (13-39) 10/24/22 12:20 ALT 10 U/L (7-52) 10/24/22 12:20 Alkaline Phosphatase 49 U/L (34-104) 10/24/22 12:20 Troponin I High Sens 6.1 pg/ml (0-14) 10/24/22 12:20 Total Protein 7.0 gm/dl (6.0-8.3) 10/24/22 12:20 Albumin 4.2 gm/dl (3.4-5.0) 10/24/22 12:20 Globulin 2.8 gm/dl (2.5-4.0) 10/24/22 12:20 Albumin/Globulin Ratio 1.5 (0.9-2) 10/24/22 12:20 TSH 2.582 uIu/ml (0.300-4.500) 10/25/22 05:31 Impressions Chest X-Ray 10/24/22 12:02 SINGLE VIEW CHEST CLINICAL HISTORY: Dizziness FINDINGS: An AP, portable, upright chest radiograph is compared to study dated 09/17/2021 and correlated with chest CT dated 07/13/2020. The cardiomediastinal silhouette is unremarkable. The lungs and pleural spaces are clear. No pneumothorax is seen. The skeletal structures are osteopenic. The bony thorax is grossly intact. IMPRESSION: No active disease in the chest. ACT 112: Negative or not required by law. Electronically signed by: Carter Young M.D. 10/24/2022 12:54 PM Head CTA 10/24/22 12:03 CT ANGIOGRAM OF THE BRAIN COMBO; CT ANGIOGRAM OF THE NECK CLINICAL HISTORY: Headache. Vertigo. COMPARISON STUDY: CT of the brain dated 07/13/2020 TECHNIQUE: Unenhanced axial CT scan of the brain is performed. Subsequently, following the IV administration of 114 of Optiray 350, CT angiogram of the head and neck was performed from the aortic arch to the vertex. Images are reviewed in the axial, sagittal, and coronal planes. 3-D MIPS images are created and assessed. IV contrast was administered without complication. All measurements were calculated based on NASCET criteria. A dose lowering technique was utilized adhering to the principles of ALARA. CT DOSE: 898.23 mGy.cm FINDINGS: Brain parenchyma: There is age-related involutional change noting minimal microangiopathic disease. There is no hemorrhage, mass effect, or evidence of acute territorial ischemia by CT criteria. There is no evidence of enhancing mass lesion on the angiogram phase images. The ventricles, sulci, and cisterns are prominent secondary to involutional change. Marroquin-white matter differentiation is preserved. No extra-axial fluid collection is seen. Thoracic aorta: Visualized portions of the thoracic aorta are normal in caliber. The aortic arch demonstrates standard 3-vessel anatomy. Right carotid arterial system: The right common carotid artery is widely patent, as are the right internal and external carotid arteries. Minimal calcified plaque is seen in the carotid bulb. Left carotid arterial system: The left common carotid artery is widely patent, as are the left internal and external carotid arteries. Minimal calcified plaque is seen in the carotid bulb. Vertebral arteries: The vertebral arteries are widely patent bilaterally and codominant. Subclavian arteries: Widely patent bilaterally. Atherosclerotic calcification is seen on the left. Intracranial vasculature: There is atherosclerotic calcification of the cavernous carotid arteries. The internal carotid arteries are patent at the skull base, as are the anterior and middle cerebral arteries bilaterally. The right A1 segment is atretic. The vertebrobasilar system and posterior cerebral arteries are widely patent. The vertebral arteries are codominant. There is no aneurysm, high-grade stenosis, or focal vessel cut off seen throughout the intracranial circulation. Jugular veins: Patent bilaterally. Dural sinuses: Patent. Lung apices: Partially visualized upper lobe lung parenchyma appears clear. Soft tissues: The visualized pharyngeal soft tissues are normal in appearance noting angiographic phase technique. The oropharyngeal airway appears widely patent. The salivary and thyroid glands are normal in appearance. No cervical lymphadenopathy is seen. Skeletal structures: The skeletal structures are osteopenic. The calvarium appears intact. The cervical spine is noting mild spondylosis. No lytic or blastic lesion is seen. Orbits: The bony orbits are intact. Orbital contents are normal as visualized noting bilateral ocular lens implants. Sinuses and mastoids: The paranasal sinuses are clear. The mastoid air cells are well pneumatized. IMPRESSION: 1. There is no hemorrhage, mass effect, or evidence of acute territorial ischemia by CT criteria. 2. Unremarkable CT angiogram of the brain. 3. Unremarkable CT angiogram of the neck. ACT 112: Negative or not required by law. Electronically signed by: Carter Young M.D. 10/24/2022 2:29 PM Neck CTA 10/24/22 12:03 CT ANGIOGRAM OF THE BRAIN COMBO; CT ANGIOGRAM OF THE NECK CLINICAL HISTORY: Headache. Vertigo. COMPARISON STUDY: CT of the brain dated 07/13/2020 TECHNIQUE: Unenhanced axial CT scan of the brain is performed. Subsequently, following the IV administration of 114 of Optiray 350, CT angiogram of the head and neck was performed from the aortic arch to the vertex. Images are reviewed in the axial, sagittal, and coronal planes. 3-D MIPS images are created and assessed. IV contrast was administered without complication. All measurements were calculated based on NASCET criteria. A dose lowering technique was utilized adhering to the principles of ALARA. CT DOSE: 898.23 mGy.cm FINDINGS: Brain parenchyma: There is age-related involutional change noting minimal microangiopathic disease. There is no hemorrhage, mass effect, or evidence of acute territorial ischemia by CT criteria. There is no evidence of enhancing mass lesion on the angiogram phase images. The ventricles, sulci, and cisterns are prominent secondary to involutional change. Marroquin-white matter differentiation is preserved. No extra-axial fluid collection is seen. Thoracic aorta: Visualized portions of the thoracic aorta are normal in caliber. The aortic arch demonstrates standard 3-vessel anatomy. Right carotid arterial system: The right common carotid artery is widely patent, as are the right internal and external carotid arteries. Minimal calcified plaque is seen in the carotid bulb. Left carotid arterial system: The left common carotid artery is widely patent, as are the left internal and external carotid arteries. Minimal calcified plaque is seen in the carotid bulb. Vertebral arteries: The vertebral arteries are widely patent bilaterally and codominant. Subclavian arteries: Widely patent bilaterally. Atherosclerotic calcification is seen on the left. Intracranial vasculature: There is atherosclerotic calcification of the cavernous carotid arteries. The internal carotid arteries are patent at the skull base, as are the anterior and middle cerebral arteries bilaterally. The right A1 segment is atretic. The vertebrobasilar system and posterior cerebral arteries are widely patent. The vertebral arteries are codominant. There is no aneurysm, high-grade stenosis, or focal vessel cut off seen throughout the intracranial circulation. Jugular veins: Patent bilaterally. Dural sinuses: Patent. Lung apices: Partially visualized upper lobe lung parenchyma appears clear. Soft tissues: The visualized pharyngeal soft tissues are normal in appearance noting angiographic phase technique. The oropharyngeal airway appears widely patent. The salivary and thyroid glands are normal in appearance. No cervical lymphadenopathy is seen. Skeletal structures: The skeletal structures are osteopenic. The calvarium appears intact. The cervical spine is noting mild spondylosis. No lytic or blastic lesion is seen. Orbits: The bony orbits are intact. Orbital contents are normal as visualized noting bilateral ocular lens implants. Sinuses and mastoids: The paranasal sinuses are clear. The mastoid air cells are well pneumatized. IMPRESSION: 1. There is no hemorrhage, mass effect, or evidence of acute territorial ischemia by CT criteria. 2. Unremarkable CT angiogram of the brain. 3. Unremarkable CT angiogram of the neck. ACT 112: Negative or not required by law. Electronically signed by: Carter Young M.D. 10/24/2022 2:29 PM Ordered Studies 10/24/22 12:03 CT angio head wo/w Stat CT angio neck with con Stat Hospital Course (1) Dizziness: (2) Nausea: Patient is 66-year-old female with PMH anxiety, depression, insomnia, CKD III presented to ER with complaint of dizziness, nausea with movement x 2 days. Dizziness/Nausea Likely secondary to medications: Auvelity, trazodone, Ramelteon DD: BPPV --Head/Neck CTA:There is no hemorrhage, mass effect, or evidence of acute territorial ischemia by CT criteria. Unremarkable CT angiogram of the brain. Unremarkable CT angiogram of the neck. -- Normal orthostatics --No issues on telemetry --Ability has been discontinued 4 days ago Meclizine as needed PT for Wild's Advance as tolerated Will decrease trazodone dose to 100 mg at bedtime Plan to discharge home today (3) Anxiety and depression: (4) Insomnia: [facility] Plans to follow [facility] on 11/04/22 Continue ramelteon, trazodone, lorazepam as needed Plan to decrease trazodone as above (5) CKD (chronic kidney disease), stage III: Creatinine at baseline DVT Prophylaxis SCDs CODE STATUS Full Code Total Time Total Time Spent Total Time Spent (In Minutes): 55 minutes Discharge Plan Discharge Items Patient Disposition: Home - Self-Care Reason For Visit: DIZZINESS Discharge Diagnosis: Dizziness Activity: Per Instructions section Exercise/Sports: Wait until after follow-up appointment Non-emergency contact: Primary Care Provider Call non-emergency contact if: you have any medication questions, your symptoms worsen, your pain is concerning for you and you have a fever Follow-up/Referrals: Aimee Sesay MD [Primary Care Provider] - Diet: Heart Healthy Addtl Attending Provider Instructions: Follow-up with your primary care physician Dr. Sesay in 1 week Consider following with ENT if your dizziness continues to to persist. --Your trazodone dose is decreased to 100 mg at bedtime, secondary to side effects. Seek immediate medical attention if your symptoms reoccur or worsen Please take all medications as instructed on discharge list below. Please call if you have any questions or problems. You can reach a [facility] hospitalist on duty at [facility] 24 hours a day by calling Pending Studies at Discharge: No Stand-Alone Forms: My [facility], Smoking Cessation Medications and DC Order Prescriptions: New meclizine 25 mg Tablet 25 mg PO Q6H PRN (Reason: dizziness) Qty: 30 0RF Continued lorazepam 1 mg tablet 1 mg PO BID PRN (Reason: Anxiety) acetaminophen [Tylenol Extra Strength] 500 mg Tablet 1,000 mg PO Q6H PRN (Reason: Pain) ramelteon 8 mg tablet 8 mg PO HS solifenacin 5 mg tablet 5 mg PO DAILY Changed trazodone 100 mg tablet 100 mg PO HS Qty: 1 0RF Discharge Orders: Discharge Order (Routine); Ordered 10/25/22 Ordered By: Bradley Camilo Admission Data Admit Date/Time: 10/24/22 15:57 Attending Provider: Bradley Camilo Admit Provider: Aye Solorzano Primary Care Provider: Aimee Sesay Other Providers: Aye Solorzano
== END 2022-10-25 15:04 | disposition home or self-care (01) ==
LOC: EDINP 11:27 → ED 11:27 → SUATTDRO 15:57 → 2N 22:23